=== PATIENT | male | born 1950 | race Hispanic/Latino ===

== ENCOUNTER → 2017-09-21 | Outpatient (CLI) | payer OTHER ==
[~2017-09-21] MED LIST: ALLO100T PO; ASPI-555 PO; BISA5TAB12 PO; CEFI200T PO; CLOP75TA14 PO; COLC0.6C3 PO; CYCL30DR OU; FERR240T6 PO; FISH1CAP63 PO; FOLI1TAB61 PO; INSU10VI4 SQ; LISI-613 PO; METO-409 PO; MIRA50TA PO; ROSU10TA PO; SILO8CAP PO; SODI650T PO; THIA100T75 PO
== END | disposition home or self-care (01) ==
LOC: SHCH 09:36
PROVIDERS: ATTEND Internal Medicine Cardiovascular Disease
DX: I25.10 Atherosclerotic heart disease of native coronary artery without angina pectoris (principal)
CPT/HCPCS: 93880

== ENCOUNTER 2018-05-02 12:42 | Emergency (ER) | payer OTHER ==
[~2018-05-02 12:42] MED LIST changes: +INSU100V33 SQ; -INSU10VI4 SQ; -SILO8CAP PO; +SILO8CAP2 PO
[2018-05-02 13:48] LABS: APPEARANCE,URINE Cloudy (CLEAR); BILIRUBIN,URINE Negative (NEGATIVE); COLOR,URINE Yellow (YELLOW); GLUCOSE, URINE (UA) Negative (NEGATIVE); KETONES,URINE Negative (NEGATIVE); LEUKOCYTE ESTERASE ,URINE Large (NEGATIVE); NITRATE,URINE Positive (NEGATIVE); OCCULT BLOOD,URINE Moderate (NEGATIVE); PH,URINE 5.5 (5.0-8.0); PROTEIN,URINE Trace (NEGATIVE); UROBILINOGEN,URINE 0.2 mg/dL (0.2-1.0)
[2018-05-02 13:52] LABS: AMORPHOUS SEDIMENT,UR Moderate /LPF (None Seen); BACTERIA,URINE Few /HPF (None Seen); SQUAMOUS EPITHELIAL CELL,UR Rare /HPF (0-2); WBC,URINE 26-50 /HPF (0-1)
== END 2018-05-02 14:00 | disposition home or self-care (01) ==
LOC: EDH 12:42
DX: N39.0 Urinary tract infection, site not specified (principal); R33.9 Retention of urine, unspecified; I12.9 Hypertensive chronic kidney disease with stage 1 through stage 4 chronic kidney disease, or unspecified chronic kidney disease; E11.22 Type 2 diabetes mellitus with diabetic chronic kidney disease; N18.9 Chronic kidney disease, unspecified; M19.90 Unspecified osteoarthritis, unspecified site; I25.10 Atherosclerotic heart disease of native coronary artery without angina pectoris; Z46.6 Encounter for fitting and adjustment of urinary device; Z90.49 Acquired absence of other specified parts of digestive tract; Z95.1 Presence of aortocoronary bypass graft; Z98.890 Other specified postprocedural states; Z87.891 Personal history of nicotine dependence
CPT/HCPCS: 81001; 87077; 87088; 87186

== ENCOUNTER → 2018-05-14 | Outpatient (CLI) | payer OTHER | END | disposition home or self-care (01) | LOC: SHCH 10:52 | PROVIDERS: ATTEND Internal Medicine Cardiovascular Disease | DX: R60.9 Edema, unspecified (principal) | CPT/HCPCS: 93970 ==

== ENCOUNTER → 2018-05-24 | Outpatient (CLI) | payer OTHER | END | disposition home or self-care (01) | LOC: SHCH 15:53 | PROVIDERS: ATTEND Internal Medicine Cardiovascular Disease | DX: I11.9 Hypertensive heart disease without heart failure (principal); Z95.0 Presence of cardiac pacemaker | CPT/HCPCS: 93306 ==

== ENCOUNTER → 2018-08-20 | Outpatient (CLI) | payer OTHER ==
[~2018-08-20] MED LIST changes: -ROSU10TA PO; +ROSU10TA22 PO
== END | disposition home or self-care (01) ==
LOC: SHCH 09:26
PROVIDERS: ATTEND Internal Medicine Cardiovascular Disease
DX: Z09 Encounter for follow-up examination after completed treatment for conditions other than malignant neoplasm (principal)
CPT/HCPCS: 93971

== ENCOUNTER → 2019-09-12 | Outpatient (CLI) | payer OTHER ==
[~2019-09-12] MED LIST changes: +ALBUHFA IH; +AMLO-257 PO; +APIX2.5T PO; -ASPI-555 PO; +ASPI-556 PO; +DOCU-116 PO; +FERS325 PO; +FINA5TAB41 PO; +FOLI0.8T2 PO; +FURO40TA5 PO; +GLIM1TAB18 PO; +INSU100V SQ; +KETO5DRO39 OD; +LATA2.5D2 OP; +METO25 PO; +PRED20B PO
== END | disposition home or self-care (01) ==
LOC: SHCH 12:48
PROVIDERS: ATTEND Internal Medicine Cardiovascular Disease
DX: R09.89 Other specified symptoms and signs involving the circulatory and respiratory systems (principal); R01.1 Cardiac murmur, unspecified
CPT/HCPCS: 93306; 93880

== ENCOUNTER 2019-09-13 21:20 | Emergency (ER) | payer OTHER ==
[~2019-09-13 21:20] MED LIST changes: -ALBUHFA IH; -AMLO-257 PO; -APIX2.5T PO; -DOCU-116 PO; -FERS325 PO; -FINA5TAB41 PO; -FOLI0.8T2 PO; -FURO40TA5 PO; -GLIM1TAB18 PO; -INSU100V SQ; -KETO5DRO39 OD; -LATA2.5D2 OP; -METO25 PO; -PRED20B PO
[2019-09-13 22:10] LABS: BASOPHILS % (AUTO) 0.5 % (0.0-5.0); EOSINOPHILS % (AUTO) 3.1 % (0.0-8.0); HEMATOCRIT 40.5 % (42-54); LYMPHOCYTES % (AUTO) 5.3 % (21.0-51.0); MEAN CORPUSCULAR HEMOGLOBIN 28.1 pg (27.0-33.0); MEAN CORPUSCULAR HGB CONC 31.6 g/dL (32.0-36.0); MONOCYTES % (AUTO) 5.9 % (3.0-13.0); PLATELET COUNT (AUTO) 156 K/uL (130-400); RED BLOOD CELL COUNT(AUTO) 4.55 MIL/uL (4.50-6.20); RED CELL DISTRIBUTION WIDTH 13.7 % (11.0-15.5); WHITE BLOOD COUNT (AUTO) 8.1 K/uL (4.8-10.8)
[2019-09-13 22:21] LABS: APPEARANCE,URINE Clear (CLEAR); BILIRUBIN,URINE Negative (NEGATIVE); COLOR,URINE Yellow (YELLOW); GLUCOSE, URINE (UA) Negative (NEGATIVE); KETONES,URINE Trace mg/dL (NEGATIVE); LEUKOCYTE ESTERASE ,URINE Negative (NEGATIVE); NITRATE,URINE Negative (NEGATIVE); OCCULT BLOOD,URINE Trace (NEGATIVE); PROTEIN,URINE 300 mg/dL (NEGATIVE)
[2019-09-13 22:21] LABS: CREATININE 1.4 mg/dL (0.5-1.5); POTASSIUM 4.8 mmol/L (3.5-5.1)
[2019-09-13 22:26] LABS: ALBUMIN 3.6 g/dL (3.5-5.0); BILIRUBIN,TOTAL 0.5 mg/dL (0.2-1.0); TOTAL PROTEIN, SERUM 6.7 g/dL (6.0-8.3)
[2019-09-13 22:31] LABS: BACTERIA,URINE None Seen /HPF (None Seen); RBC,URINE 0-1 /HPF (0-1); SQUAMOUS EPITHELIAL CELL,UR Rare /HPF (0-2); WBC,URINE None Seen /HPF (0-1)
[2019-09-13] MEDS ORDERED: ACETAMINOPHEN EXTRA STRENGTH 500 MG TABLET ONE (22:43)
[2019-09-13] MEDS ORDERED: MORPHINE SULFATE 4 MG/1ML SYG ONE (23:17)
[2019-09-13] MEDS ORDERED: ONDANSETRON HCL 4 MG/2 ML VIAL ONE (23:17)
[2019-09-18] MEDS ORDERED: FERS325 PO (13:50)
[2019-09-18] MEDS ORDERED: CLOP75TA14 PO (13:50)
[2019-09-18] MEDS ORDERED: GLIM1TAB18 PO (13:50)
[2019-09-18] MEDS ORDERED: SODI650T PO (13:50)
[2019-09-18] MEDS ORDERED: LATA2.5D2 OP (13:50)
[2019-09-18] MEDS ORDERED: KETO5DRO39 OD (13:50)
[2019-09-18] MEDS ORDERED: METO-409 PO (13:50)
[2019-09-18] MEDS ORDERED: AMLO-257 PO (13:50)
[2019-09-18] MEDS ORDERED: FINA5TAB41 PO (13:50)
[2019-09-18] MEDS ORDERED: FOLI0.8T2 PO (13:50)
[2019-09-18] MEDS ORDERED: ASPI-556 PO (13:50)
[2019-09-18] MEDS ORDERED: FOLI1TAB61 PO (13:50)
[2019-09-18] MEDS ORDERED: LISI-613 PO (13:50)
[2019-09-18] MEDS ORDERED: FURO40TA5 PO (13:50)
[2019-09-18] MEDS ORDERED: SILO8CAP2 PO (13:50)
[2019-09-18] MEDS ORDERED: DOCU-116 PO (13:50)
[2019-09-18] MEDS ORDERED: ROSU10TA22 PO (13:50)
[2019-10-10] MEDS ORDERED: PRED20B PO (11:04)
[2019-10-10] MEDS ORDERED: METO25 PO (11:04)
[2019-10-10] MEDS ORDERED: INSU100V SQ ×2 (11:04)
[2019-10-10] MEDS ORDERED: ALBUHFA IH (11:04)
[2019-10-10] MEDS ORDERED: APIX2.5T PO (11:04)
== END 2019-09-14 00:41 | disposition home or self-care (01) ==
LOC: EDH 21:20
DX: M54.9 Dorsalgia, unspecified (principal); E66.01 Morbid (severe) obesity due to excess calories; I12.0 Hypertensive chronic kidney disease with stage 5 chronic kidney disease or end stage renal disease; E11.22 Type 2 diabetes mellitus with diabetic chronic kidney disease; N18.6 End stage renal disease; I25.10 Atherosclerotic heart disease of native coronary artery without angina pectoris; M19.90 Unspecified osteoarthritis, unspecified site; M10.9 Gout, unspecified
CPT/HCPCS: 36415; 71045; 74176; 80053; 81001; 82550; 83605; 83880; 84484; 85025; 87040 ×2; 87077; 87088; 87186; 93005; 96374; 96375; 99284; J2270; J2405

== ENCOUNTER 2019-09-17 11:59 | Inpatient (IN) | payer OTHER ==
[~2019-09-17] VITALS: Ht 167.6 cm; Wt 152.8 kg
[2019-09-17] MEDS ORDERED: ACETAMINOPHEN EXTRA STRENGTH 500 MG TABLET ONE (12:14)
[2019-09-17] MEDS ORDERED: AZITHROMYCIN 500MG+NS 250ML 250 ML IV ONE (15:40)
[2019-09-17] MEDS ORDERED: CEFTRIAXONE SODIUM 1 GM ONE (15:40)
[2019-09-17] MEDS ORDERED: SODIUM CHLORIDE 0.9% 500 ML IV ONE (15:41)
[2019-09-17] MEDS ORDERED: ALBUTEROL INHALER 90MCG/INH IH PRN (17:15)
[2019-09-17] MEDS ORDERED: METHYLPREDNISOLONE SOD SUCC 40MG/ML 1ML ONE (19:33)
[2019-09-17] MEDS ORDERED: FAMOTIDINE/PF 20 MG/2 ML VIAL IV ONE (19:33)
[2019-09-17] MEDS ORDERED: ENOXAPARIN SODIUM 60 MG/0.6 ML SQ ONE (19:33)
[2019-09-17] MEDS: ENOXAPARIN SODIUM 40 MG/0.4 ML SYRINGE SQ SCH (20:00)
[2019-09-17] MEDS: CEFTRIAXONE SODIUM 1 GM IVP SCH (21:00)
[2019-09-17] MEDS: FUROSEMIDE 20 MG TABLET PO SCH (22:00)
[2019-09-17] MEDS: INSULIN LISPRO 100 UNIT/ML 3ML SQ SCH (22:00)
[2019-09-17 22:18] VITALS: PULSE 81; RESP 15
[2019-09-17] MEDS ORDERED: FUROSEMIDE 20 MG TABLET ONE (23:25)
[2019-09-18] VITALS (10 sets, daily range): BP systolic 136–161; BP diastolic 69–93; PULSE 80–89; RESP 18–22; TEMP 98.2–100.7
[2019-09-18] MEDS: INSULIN LISPRO 100 UNIT/ML 3ML SQ SCH ×4 (04:00→23:53)
[2019-09-18] MEDS: ENOXAPARIN SODIUM 40 MG/0.4 ML SYRINGE SQ SCH (08:29)
[2019-09-18] MEDS: FAMOTIDINE/PF 20 MG/2 ML VIAL IV SCH (08:29)
[2019-09-18] MEDS: AZITHROMYCIN 500MG+NS 250ML 250 ML IV SCH (08:30)
[2019-09-18] MEDS: FUROSEMIDE 20 MG TABLET PO SCH (10:15)
[2019-09-18] MEDS ORDERED: METHYLPREDNISOLONE SOD SUCC 40MG/ML 1ML IVP SCH (14:30)
[2019-09-18] MEDS ORDERED: REMDESIVIR (INVESTIGATIONAL) 200 MG in SODIUM CHLORIDE 0.9% 250 ML IV ONE (16:00)
[2019-09-18] MEDS: METHYLPREDNISOLONE SOD SUCC 40MG/ML 1ML IVP SCH ×2 (16:37→23:52)
[2019-09-18] MEDS: LACTATED RINGERS 1000ML 1,000 ML IV SCH (16:37)
--- NOTE | 2019-09-18 18:02 | NUR ---
Family contacted Spoke with patients family regarding giving the patient convalescent plasma for covid + treatment. Informed consent was obtained from Carla Gomes via telephone consent with 2 nurses phoebe CHE witnessed. Patient was also informed of treatment but due to a small amount of confusion most likely related to viral covid pneumonia. was called to verify if they would like to proceed with Dr. Yu recommendation to use plasma.
[2019-09-18] MEDS: ENOXAPARIN SODIUM 120 MG/0.8ML SQ SCH (19:53)
[2019-09-18] MEDS: CEFTRIAXONE SODIUM 1 GM IVP SCH (19:53)
[2019-09-19] VITALS (12 sets, daily range): BP systolic 119–160; BP diastolic 55–75; PULSE 72–89; RESP 18–24; TEMP 97.5–100.1
[2019-09-19] MEDS: INSULIN LISPRO 100 UNIT/ML 3ML SQ SCH ×6 (06:36→20:20)
[2019-09-19] MEDS: AZITHROMYCIN 500MG+NS 250ML 250 ML IV SCH (08:27)
[2019-09-19] MEDS: FAMOTIDINE/PF 20 MG/2 ML VIAL IV SCH (08:27)
[2019-09-19] MEDS: METHYLPREDNISOLONE SOD SUCC 40MG/ML 1ML IVP SCH ×3 (08:27→23:26)
[2019-09-19] MEDS: ENOXAPARIN SODIUM 120 MG/0.8ML SQ SCH ×2 (08:27→20:14)
[2019-09-19] MEDS: INSULIN GLARGINE 100 UNITS/ML 10 ML VIAL SQ SCH ×2 (10:00→20:15)
[2019-09-19] MEDS ORDERED: RENAL DOSE IV SCH (12:30)
[2019-09-19] MEDS ORDERED: VANCOMYCIN 1GM+NS 250ML 250 ML IV SCH (12:30)
[2019-09-19] MEDS ORDERED: VANCOMYCIN PROTOCOL PER PHARMACY IV PRN (12:30)
[2019-09-19] MEDS ORDERED: CEFEPIME HCL 2 GM VIAL IVP SCH (12:45)
[2019-09-19] MEDS ORDERED: COMPOUND IV REFRIGERATED 1 EACH IVSOLN MISC PRN (13:00)
[2019-09-19] MEDS: REMDESIVIR (INVESTIGATIONAL) 100 MG in SODIUM CHLORIDE 0.9% 250 ML IV SCH (15:27)
--- NOTE | 2019-09-19 16:13 | NUR ---
MD Plan Patient currently on a 1:1. Per face sheet, daughter Dali Gomes (ph: [phone]) is person to notify. Spoke to daughter Dali and patient's Elias Gomes rehabilitation teacher as well. States patient lives with Carla and daughter Dali. Denies any HH or provider services. Verified patient has a cane and 4-wheeled walker with seat. States patient has been weak and had falls prior to coming in. Concerned about patient returning home due to weakness and inability to assist at home. Daughter will be going back to work and will not be at home all day to help out. Requesting patient go to a SNF. 1st choice [facility] in [place] and 2nd choice is [facility]. Telephone consent given for MARILYN and Choice Letter for both facilities. Informed daughter of referral process. Verbalized understanding. CM to work on obtaining an order for SNF. CD Addendum: 09/19/19 at 1657 by MAEVE WYMAN CM Amended: Links added.
[2019-09-19] MEDS: LACTATED RINGERS 1000ML 1,000 ML IV SCH (19:18)
[2019-09-19] MEDS: VANCOMYCIN 750MG + NS 250 ML IV SCH (20:13)
[2019-09-19] MEDS: CEFEPIME HCL 1 GM VIAL IVP SCH (21:04)
[2019-09-20] VITALS (10 sets, daily range): BP systolic 133–164; BP diastolic 44–72; PULSE 63–85; RESP 20–24; TEMP 96.4–98.3
[2019-09-20] MEDS ORDERED: GUAIFENESIN-DM 200/20 MG 10 ML ONE (03:56)
[2019-09-20] MEDS: CEFEPIME HCL 1 GM VIAL IVP SCH ×3 (05:48→21:25)
[2019-09-20] MEDS: INSULIN LISPRO 100 UNIT/ML 3ML SQ SCH ×7 (05:50→21:00)
[2019-09-20] MEDS: INSULIN GLARGINE 100 UNITS/ML 10 ML VIAL SQ SCH ×2 (05:52→21:00)
[2019-09-20] MEDS: LACTATED RINGERS 1000ML 1,000 ML IV SCH (05:52)
--- NOTE | 2019-09-20 06:25 | NUR ---
convalescent plasma 0500: informed by esperanza daniel that convalescent plasmas was thawed and ready to be administered 0515: obtained blood transfusion consent from next of kin. Rakan CHE, second nurse witness, telephone consent 0520: informed esperanza daniel, that patient did not have an blood transfusion band on. artificial insemination technician, informed Wendi Stovall RN, that patient would need to be type and screen in order to obtain new blood transfusion band. 0620: hvac commercial salespersonDeborah, at bedside drawing type and screen. 0630: type and screen walked to lab by deborah daniel
[2019-09-20] MEDS ORDERED: SODIUM CHLORIDE 0.9% 250 ML IV ONE ×2 (06:51→21:08)
--- NOTE | 2019-09-20 07:10 | NUR ---
0700 convalescent plasma initiated at this time. vital signs take 5 minutes pre-infusion. patient with no complaints of pain at this time. 0715: bedside report given to delfin CHE at this time.
[2019-09-20] MEDS: METHYLPREDNISOLONE SOD SUCC 40MG/ML 1ML IVP SCH ×3 (08:07→21:25)
[2019-09-20] MEDS: VANCOMYCIN 750MG + NS 250 ML IV SCH ×2 (08:07→21:25)
[2019-09-20] MEDS: FAMOTIDINE/PF 20 MG/2 ML VIAL IV SCH (08:07)
[2019-09-20] MEDS: ENOXAPARIN SODIUM 120 MG/0.8ML SQ SCH ×2 (08:08→21:25)
[2019-09-20] MEDS ORDERED: POLYETHYLENE GLYCOL 3350 17 GM POWD.PACK PO PRN (14:45)
[2019-09-20] MEDS ORDERED: SODIUM POLYSTYRENE SULFONATE 15 GM/60 ML ML PO ONE (16:00)
[2019-09-20] MEDS: REMDESIVIR (INVESTIGATIONAL) 100 MG in SODIUM CHLORIDE 0.9% 250 ML IV SCH (18:57)
[2019-09-20] MEDS: SENNOSIDES 8.6 MG TABLET PO SCH (21:25)
[2019-09-21] VITALS (11 sets, daily range): BP systolic 136–165; BP diastolic 57–78; PULSE 68–91; RESP 20–24; TEMP 97.4–98.6
[2019-09-21] MEDS: CEFEPIME HCL 1 GM VIAL IVP SCH ×3 (05:30→21:04)
[2019-09-21] MEDS: INSULIN GLARGINE 100 UNITS/ML 10 ML VIAL SQ SCH ×2 (06:25→20:50)
[2019-09-21] MEDS: INSULIN LISPRO 100 UNIT/ML 3ML SQ SCH ×7 (06:26→20:48)
[2019-09-21] MEDS: METHYLPREDNISOLONE SOD SUCC 40MG/ML 1ML IVP SCH ×2 (09:38→15:07)
[2019-09-21] MEDS: FAMOTIDINE 20MG TAB 20 MG TAB PO SCH (09:38)
[2019-09-21] MEDS: DOCUSATE SODIUM 100 MG CAP PO SCH (09:38)
[2019-09-21] MEDS: ENOXAPARIN SODIUM 120 MG/0.8ML SQ SCH ×2 (09:39→20:41)
[2019-09-21] MEDS: VANCOMYCIN 750MG + NS 250 ML IV SCH (13:06)
[2019-09-21] MEDS ORDERED: INSULIN GLARGINE 100 UNITS/ML 10 ML VIAL SQ SCH (13:30)
[2019-09-21] MEDS ORDERED: VANCOMYCIN 500MG+NS 100ML 100 ML IV SCH (14:00)
[2019-09-21] MEDS: AMLODIPINE BESYLATE 5 MG TAB PO SCH (15:06)
[2019-09-21] MEDS: FERROUS SULFATE 325 MG TABLET.DR PO SCH ×2 (15:06→16:38)
[2019-09-21] MEDS: ASPIRIN 81 MG EC TAB PO SCH (15:06)
[2019-09-21] MEDS: SODIUM BICARBONATE 650 MG TAB PO SCH ×2 (15:06→16:38)
[2019-09-21] MEDS: LISINOPRIL 20 MG TABLET PO SCH (15:07)
[2019-09-21] MEDS: ACETAMINOPHEN-CODEINE 300/30MG TAB PO PRN (15:07)
[2019-09-21] MEDS: CLOPIDOGREL BISULFATE 75 MG TAB PO SCH (15:08)
[2019-09-21] MEDS: FOLIC ACID/VITAMIN B COMP W-C 1 CAP TAB PO SCH (15:09)
[2019-09-21] MEDS: REMDESIVIR (INVESTIGATIONAL) 100 MG in SODIUM CHLORIDE 0.9% 250 ML IV SCH (16:36)
[2019-09-21] MEDS: GLIMEPIRIDE 2 MG TABLET PO SCH (16:38)
[2019-09-21] MEDS: ATORVASTATIN CALCIUM 20 MG TABLET PO SCH (16:39)
[2019-09-21] MEDS: METOPROLOL SUCCINATE 50 MG TAB.SR.24H PO SCH (20:41)
[2019-09-21] MEDS: FUROSEMIDE 40 MG TABLET PO SCH (20:42)
[2019-09-21] MEDS: VANCOMYCIN 1GM+NS 250ML 250 ML IV SCH (20:43)
[2019-09-21] MEDS: SENNOSIDES 8.6 MG TABLET PO SCH (20:43)
[2019-09-21] MEDS: LATANOPROST 2.5 ML DROPS OP SCH (20:43)
[2019-09-22] VITALS (8 sets, daily range): BP systolic 145–172; BP diastolic 56–72; PULSE 60–72; RESP 20–24; TEMP 97.4–98.7
[2019-09-22] MEDS: METHYLPREDNISOLONE SOD SUCC 40MG/ML 1ML IVP SCH ×3 (00:15→17:58)
[2019-09-22] MEDS ORDERED: HYDRALAZINE HCL 20 MG/ML VIAL ONE (03:42)
[2019-09-22] MEDS ORDERED: HYDRALAZINE HCL 20 MG/ML VIAL IV PRN (04:00)
--- NOTE | 2019-09-22 05:32 | NUR ---
Oxygenation updates Patient oxygen saturations improved and maintained greater than 90% O2 when in prone position. However, patient does not tolerate prone position very long and can only last approximately 30min to 1hr in prone position. Oxygen settings are as follow: high flow at 40 Liters NC at 100%. When patient in supine or in sitting positions oxygen sats fluctuate from 84%-90%. Nurse explain the importance of prone position and patient verbalizes understanding. Call light within reach and sitter at bedside.
[2019-09-22] MEDS: CEFEPIME HCL 1 GM VIAL IVP SCH ×3 (06:12→22:07)
[2019-09-22] MEDS: INSULIN GLARGINE 100 UNITS/ML 10 ML VIAL SQ SCH ×2 (06:13→21:14)
[2019-09-22] MEDS: INSULIN LISPRO 100 UNIT/ML 3ML SQ SCH ×6 (06:17→21:13)
--- NOTE | 2019-09-22 08:04 | NUR ---
SPOKE WITH PATIENTS USMAN ANGELES, UPDATED HER ON PATIENTS STATUS AND OBTAINED OVER THE PHONE CONSENT FOR PICC LINE, WITNESSED BY NURSE HARDY BERRY RN
[2019-09-22] MEDS: SILODOSIN 8 MG PO SCH (09:00)
[2019-09-22] MEDS: DOCUSATE SODIUM 100 MG CAP PO SCH (10:41)
[2019-09-22] MEDS: METOPROLOL SUCCINATE 50 MG TAB.SR.24H PO SCH ×2 (10:41→20:40)
[2019-09-22] MEDS: AMLODIPINE BESYLATE 5 MG TAB PO SCH (10:41)
[2019-09-22] MEDS: SODIUM BICARBONATE 650 MG TAB PO SCH ×2 (10:41→17:58)
[2019-09-22] MEDS: FOLIC ACID/VITAMIN B COMP W-C 1 CAP TAB PO SCH (10:41)
[2019-09-22] MEDS: FERROUS SULFATE 325 MG TABLET.DR PO SCH ×2 (10:41→17:57)
[2019-09-22] MEDS: FAMOTIDINE 20MG TAB 20 MG TAB PO SCH ×2 (10:41→20:40)
[2019-09-22] MEDS: ASPIRIN 81 MG EC TAB PO SCH (10:42)
[2019-09-22] MEDS: LISINOPRIL 20 MG TABLET PO SCH (10:42)
[2019-09-22] MEDS: FUROSEMIDE 40 MG TABLET PO SCH (10:43)
[2019-09-22] MEDS: GLIMEPIRIDE 2 MG TABLET PO SCH ×2 (10:43→17:00)
[2019-09-22] MEDS: CLOPIDOGREL BISULFATE 75 MG TAB PO SCH (10:43)
[2019-09-22] MEDS: GUAIFENESIN-DM 200/20 MG 10 ML PO PRN (10:43)
[2019-09-22] MEDS: ENOXAPARIN SODIUM 120 MG/0.8ML SQ SCH ×2 (10:45→21:10)
--- NOTE | 2019-09-22 13:00 | NUR ---
SPOKE WITH DAUGHTER DYANA AND USMAN ABOUT PATIENTS DETERIORATING HEALTH. EXPLAINED TO THEM THE POSSIBILITY OF NEEDING TO INTUBATE PATIENT. RISKS VS BENEFITS EXPLAINED. BOTH AGREE ON INTUBATION IF NEEDED
[2019-09-22] MEDS: ACETAMINOPHEN-CODEINE 300/30MG TAB PO PRN (14:23)
--- NOTE | 2019-09-22 17:00 | NUR ---
LEFT CEPHALIC VEIN SUCCESSFULLY ACCESSED ON SECOND ATTEMPT. 5 FR 2 LUMEN PICC INSERTED, USING ASEPTIC TECHNIQUE. UNABLE TO OBTAIN VPS BULLSEYE AFTER CATHETER INSERTED TO FULL 50CM UNCUT LENGTH, MOST LIKELY DUE TO PT MORBID OBESITY. CHEST XRAY ORDERED PENDING RADIOLOGY CONFIRMATION OF TIP PLACEMENT IN SVC FOR OK TO USE. RUBIA BASHIR, CHINEDU AWARE. BOTH PORTS FLUSHED AND CLAMPED ASEPTICALLY. RN ALSO MADE AWARE OF RIGHT UPPER ARM SWELLING, HARD AND PAINFUL. PT REPORTS PAIN FOR 1-2 DAYS. RN WILL RELAY THIS TO ATTENDING MD AND AWAIT FURTHER ORDERS.
[2019-09-22] MEDS: REMDESIVIR (INVESTIGATIONAL) 100 MG in SODIUM CHLORIDE 0.9% 250 ML IV SCH (17:56)
[2019-09-22] MEDS: VANCOMYCIN 1GM+NS 250ML 250 ML IV SCH ×2 (17:56→23:55)
[2019-09-22] MEDS: FUROSEMIDE 10 MG/ML 4ML VIAL IV SCH (17:57)
[2019-09-22] MEDS: ATORVASTATIN CALCIUM 20 MG TABLET PO SCH (17:58)
[2019-09-22] MEDS: SENNOSIDES 8.6 MG TABLET PO SCH (20:40)
[2019-09-22] MEDS: METHYLPREDNISOLONE SOD SUCC 125MG/2ML VIAL IVP SCH (20:40)
[2019-09-22] MEDS: LATANOPROST 2.5 ML DROPS OP SCH (20:41)
--- NOTE | 2019-09-22 22:10 | NUR ---
CALLED BACK TO ASSESS PICC LINE REPORTED NOT FUNCTIONING. NOTED PICC WAS POSITIONAL AND KINKING ALONG A CREASE IN PTS ARM FOLDS FROM OBESITY. PICC DRESSING AND STAT LOCK REMOVED AND SITE CLEANED ASEPTICALLY. PICC LINE PULLED OUT 2CM AND ANGLED LATERALLY UNTIL GOOD BLOOD RETURN ACHIEVED AND FLUSHED EASILY AND CLAMPED. NEW STAT LOCK AND DRESSING APPLIED USING ASEPTIC TECHNIQUE. BOTH LUMENS OF PICC LINE FLUSHED A SECOND TIME AFTER DRESSING APPLIED TO DOUBLE CHECK FUNCTION. BOTH LUMENS HAD GOOD BLOOD RETURN AND FLUSHED EASILY AND CLAMPED.
[2019-09-22] MEDS ORDERED: LORAZEPAM 2 MG/ML 1 ML VIAL ONE (23:20)
[2019-09-22] MEDS ORDERED: LORAZEPAM 2 MG/ML 1 ML VIAL IVP ONE (23:30)
[2019-09-23] VITALS (11 sets, daily range): BP systolic 119–156; BP diastolic 45–69; PULSE 63–93; RESP 20–24; TEMP 96.8–99
[2019-09-23] MEDS: METHYLPREDNISOLONE SOD SUCC 125MG/2ML VIAL IVP SCH ×4 (01:04→18:45)
[2019-09-23] MEDS: FUROSEMIDE 10 MG/ML 4ML VIAL IV SCH (02:04)
[2019-09-23] MEDS: CEFEPIME HCL 1 GM VIAL IVP SCH ×3 (05:22→22:36)
[2019-09-23] MEDS: INSULIN LISPRO 100 UNIT/ML 3ML SQ SCH ×7 (05:34→21:00)
[2019-09-23] MEDS: INSULIN GLARGINE 100 UNITS/ML 10 ML VIAL SQ SCH ×2 (06:02→21:00)
[2019-09-23] MEDS: SILODOSIN 8 MG PO SCH (09:00)
[2019-09-23] MEDS: SODIUM BICARBONATE 650 MG TAB PO SCH ×2 (09:19→17:00)
[2019-09-23] MEDS: VANCOMYCIN 1GM+NS 250ML 250 ML IV SCH ×2 (09:19→22:37)
[2019-09-23] MEDS: DOCUSATE SODIUM 100 MG CAP PO SCH (09:19)
[2019-09-23] MEDS: LISINOPRIL 20 MG TABLET PO SCH (09:19)
[2019-09-23] MEDS: ASPIRIN 81 MG EC TAB PO SCH (09:19)
[2019-09-23] MEDS: METOPROLOL SUCCINATE 50 MG TAB.SR.24H PO SCH (09:19)
[2019-09-23] MEDS: FOLIC ACID/VITAMIN B COMP W-C 1 CAP TAB PO SCH (09:20)
[2019-09-23] MEDS: AMLODIPINE BESYLATE 5 MG TAB PO SCH (09:20)
[2019-09-23] MEDS: GLIMEPIRIDE 2 MG TABLET PO SCH ×2 (09:20→17:00)
[2019-09-23] MEDS: FERROUS SULFATE 325 MG TABLET.DR PO SCH ×2 (09:20→17:00)
[2019-09-23] MEDS: FAMOTIDINE 20MG TAB 20 MG TAB PO SCH (09:20)
[2019-09-23] MEDS: CLOPIDOGREL BISULFATE 75 MG TAB PO SCH (09:21)
[2019-09-23] MEDS ORDERED: LIDOCAINE HCL-MPF 1% 2ML VIAL IV PRN (11:45)
[2019-09-23] MEDS ORDERED: MAGNESIUM 2GM PREMIX 50ML 50 ML IV PRN (11:45)
[2019-09-23] MEDS ORDERED: POTASSIUM CHLORIDE 10% ELIXIR 20 MEQ/15 ML UDCUP PO PRN (11:45)
[2019-09-23] MEDS ORDERED: POTASSIUM CHLORIDE 20MEQ/100ML 100 ML IV PRN (11:45)
[2019-09-23] MEDS: ATORVASTATIN CALCIUM 20 MG TABLET PO SCH (17:00)
[2019-09-23] MEDS: SENNOSIDES 8.6 MG TABLET PO SCH (21:00)
[2019-09-23] MEDS: FAMOTIDINE/PF 20 MG/2 ML VIAL IV SCH (22:36)
[2019-09-23] MEDS: METOPROLOL TARTRATE 1 MG/ML 5ML VIAL IV SCH (22:43)
[2019-09-23] MEDS: LATANOPROST 2.5 ML DROPS OP SCH (22:58)
[2019-09-24] VITALS (9 sets, daily range): BP systolic 122–175; BP diastolic 60–71; PULSE 67–96; RESP 18–32; TEMP 97.1–98.5
[2019-09-24] MEDS: METHYLPREDNISOLONE SOD SUCC 125MG/2ML VIAL IVP SCH ×3 (02:27→12:47)
[2019-09-24] MEDS: METOPROLOL TARTRATE 1 MG/ML 5ML VIAL IV SCH ×3 (02:28→17:54)
[2019-09-24] MEDS: INSULIN LISPRO 100 UNIT/ML 3ML SQ SCH ×7 (05:42→22:32)
[2019-09-24] MEDS: CEFEPIME HCL 1 GM VIAL IVP SCH ×3 (06:21→20:06)
[2019-09-24] MEDS: INSULIN GLARGINE 100 UNITS/ML 10 ML VIAL SQ SCH ×2 (06:25→22:31)
[2019-09-24] MEDS: SODIUM BICARBONATE 650 MG TAB PO SCH ×2 (08:00→17:00)
[2019-09-24] MEDS: FERROUS SULFATE 325 MG TABLET.DR PO SCH ×2 (08:00→17:00)
[2019-09-24] MEDS: GLIMEPIRIDE 2 MG TABLET PO SCH ×2 (08:00→17:00)
[2019-09-24] MEDS: CLOPIDOGREL BISULFATE 75 MG TAB PO SCH (09:00)
[2019-09-24] MEDS ORDERED: FUROSEMIDE 10 MG/ML 4ML VIAL IV SCH (09:00)
[2019-09-24] MEDS: LISINOPRIL 20 MG TABLET PO SCH (09:00)
[2019-09-24] MEDS: ASPIRIN 81 MG EC TAB PO SCH (09:00)
[2019-09-24] MEDS: SILODOSIN 8 MG PO SCH (09:00)
[2019-09-24] MEDS: FOLIC ACID/VITAMIN B COMP W-C 1 CAP TAB PO SCH (09:00)
[2019-09-24] MEDS: DOCUSATE SODIUM 100 MG CAP PO SCH (09:00)
[2019-09-24] MEDS: AMLODIPINE BESYLATE 5 MG TAB PO SCH (09:00)
[2019-09-24] MEDS: VANCOMYCIN 1GM+NS 250ML 250 ML IV SCH ×2 (10:32→20:06)
[2019-09-24] MEDS: FAMOTIDINE/PF 20 MG/2 ML VIAL IV SCH ×2 (10:32→20:06)
[2019-09-24] MEDS: ATORVASTATIN CALCIUM 20 MG TABLET PO SCH (17:00)
[2019-09-24] MEDS ORDERED: METHYLPREDNISOLONE SOD SUCC 125MG/2ML VIAL IVP SCH (18:00)
--- NOTE | 2019-09-24 18:45 | NUR ---
NOTE SPOKE TO DR VAZQUEZ AND INFORMED HIM THAT PATIENT IS BECOMING INCREASINGLY RESTLESS. HE HAD BEEN ON AND OFF WITH PERIODS OF CONFUSION TRYING TO TAKE OFF MASK AND SINGING LEGS OFF RAILS MOVING IN BED BUT NOW HE IS SCREAMING THAT HE IS THRISTY WANTS WATER, WE GIVE HIM WATER AND HE SPITS IT OUT. HE WANTS MITTENS OFF. ORDERS RECEIVED.
[2019-09-24] MEDS: HALOPERIDOL LACTATE 5 MG/ML VIAL IV SCH (20:00)
--- NOTE | 2019-09-24 20:00 | NUR ---
PT GIVEN HALDOL X1 DOSE ORDERED BY DAY NURSE. O2 LEVEL AT 96. RESTLESS. CONFUSED PHRASES. BRUISING NOTED TO UPPER BODY IN MOSTLY UPPER ARMS AREA.. 1:1 SITTER. PICC LINE PATENT.
[2019-09-24] MEDS: SENNOSIDES 8.6 MG TABLET PO SCH ×2 (20:06→21:00)
[2019-09-24] MEDS: LATANOPROST 2.5 ML DROPS OP SCH (22:29)
[2019-09-25] VITALS (9 sets, daily range): BP systolic 128–188; BP diastolic 57–88; PULSE 56–97; RESP 18–32; TEMP 97–99.1
[2019-09-25] MEDS: METOPROLOL TARTRATE 1 MG/ML 5ML VIAL IV SCH ×4 (00:09→17:08)
[2019-09-25] MEDS: METHYLPREDNISOLONE SOD SUCC 125MG/2ML VIAL IVP SCH ×3 (00:13→17:03)
--- NOTE | 2019-09-25 03:30 | NUR ---
PT BP 188 SYSTOLIC. HYDRALAZINE GIVEN PRN. VERIFIED ON BOTH ARMS. ELEVATED. WILL RECHECK IN 30 MINS.
[2019-09-25] MEDS: CEFEPIME HCL 1 GM VIAL IVP SCH ×3 (05:07→21:50)
[2019-09-25] MEDS: INSULIN LISPRO 100 UNIT/ML 3ML SQ SCH ×7 (05:10→21:52)
--- NOTE | 2019-09-25 06:17 | NUR ---
PT IS NOW AWAKE AND RESTLESS, ATTEMPTS TO GET OUT OF BED. 1:1 SITTER
[2019-09-25] MEDS: INSULIN GLARGINE 100 UNITS/ML 10 ML VIAL SQ SCH ×2 (06:43→20:29)
--- NOTE | 2019-09-25 08:10 | NUR ---
In bed, AAOX1, to person only, remains confused, 1:1 sitter at bedside to pre vent patient from pulling on lines and removing prescribed oxygen. O2 at 60 liters high flow with 100 % NRM in place, O2 sat noted at 99%.
[2019-09-25] MEDS: FERROUS SULFATE 325 MG TABLET.DR PO SCH ×2 (08:30→17:01)
[2019-09-25] MEDS: GLIMEPIRIDE 2 MG TABLET PO SCH ×2 (08:31→17:01)
[2019-09-25] MEDS: FAMOTIDINE/PF 20 MG/2 ML VIAL IV SCH ×2 (08:32→20:24)
[2019-09-25] MEDS: SODIUM BICARBONATE 650 MG TAB PO SCH ×2 (08:32→17:01)
[2019-09-25] MEDS: ASPIRIN 81 MG EC TAB PO SCH (08:32)
[2019-09-25] MEDS: DOCUSATE SODIUM 100 MG CAP PO SCH (08:33)
[2019-09-25] MEDS: FOLIC ACID/VITAMIN B COMP W-C 1 CAP TAB PO SCH (08:33)
[2019-09-25] MEDS: AMLODIPINE BESYLATE 5 MG TAB PO SCH (08:34)
[2019-09-25] MEDS: CLOPIDOGREL BISULFATE 75 MG TAB PO SCH (08:34)
[2019-09-25] MEDS: SILODOSIN 8 MG PO SCH (08:36)
[2019-09-25] MEDS: LISINOPRIL 20 MG TABLET PO SCH (08:36)
[2019-09-25] MEDS: VANCOMYCIN 1GM+NS 250ML 250 ML IV SCH ×3 (08:40→20:24)
[2019-09-25] MEDS ORDERED: DEXTROSE 5%-WATER 1,000 ML IV SCH (09:30)
[2019-09-25] MEDS: HALOPERIDOL LACTATE 5 MG/ML VIAL IV SCH (10:10)
[2019-09-25] MEDS: ENOXAPARIN SODIUM 60 MG/0.6 ML SQ SCH (12:40)
--- NOTE | 2019-09-25 12:53 | NUR ---
Current glucose level 210, covered per Humalog Sliding scale, administered 8 units. Held scheduled 15 units [facility], paged Dr Cohen notify about two orders
--- NOTE | 2019-09-25 14:52 | NUR ---
RDSCREEN-LOS X 8 Pt admitted with Respiratory Failure, PNA, Positive for COVID-19. Pt with 30gm CC diet order in place. No report of GI distress. Noted 3+ Generalized pitting edema. Obesity Class III (BMI 48.5). Elevated LDH (904). Recommend 500mg Vitamin C (BID) Recommend 60mL ProMod (QD) RD to continue to monitor. Please notify as additional nutrition concerns arise. Thank you. Addendum: 09/25/19 at [address] Amended: Links added.
[2019-09-25] MEDS: ATORVASTATIN CALCIUM 20 MG TABLET PO SCH (17:01)
--- NOTE | 2019-09-25 20:00 | NUR ---
PT CONTINUES WITH 1:1 SITTER. HAS DECREASED IN AGITATION LEVELS. DOES MOVE AROUND IN BED BUT DOES NOT ATTEMPT TO GET OUT OF BED. CURRENTLY EYES CLOSED. YELLS OUT RANDOM NAMES, IS ABLE TO RESPOND TO HIS NAME, NOT ABLE TO STATE LOCATION OR TIME. CONTINUES WITH INCREASED BRUISING TO UPPER ARMS. PICC LINE PATENT. VANCO RUNNING AT THIS TIME. PT ON HIGH FLOW WITH NRN NOW AT 90%. ORDER TO WEAN OFF WHEN POSSIBLE
[2019-09-25] MEDS: SENNOSIDES 8.6 MG TABLET PO SCH (20:24)
[2019-09-25] MEDS: LATANOPROST 2.5 ML DROPS OP SCH (20:25)
--- NOTE | 2019-09-25 20:55 | NUR ---
CARE TRANSFERRED TO L[facility]
[2019-09-26] VITALS (11 sets, daily range): BP systolic 137–199; BP diastolic 56–79; PULSE 66–97; RESP 20–34; TEMP 96.9–99.1
[2019-09-26] MEDS: CEFEPIME HCL 1 GM VIAL IVP SCH ×3 (06:39→22:50)
[2019-09-26] MEDS: INSULIN LISPRO 100 UNIT/ML 3ML SQ SCH ×7 (06:40→20:18)
[2019-09-26] MEDS: INSULIN GLARGINE 100 UNITS/ML 10 ML VIAL SQ SCH ×2 (06:40→20:18)
[2019-09-26] MEDS: METOPROLOL TARTRATE 1 MG/ML 5ML VIAL IV SCH ×4 (06:41→18:15)
[2019-09-26] MEDS: GLIMEPIRIDE 2 MG TABLET PO SCH ×2 (08:00→16:15)
[2019-09-26] MEDS: SODIUM BICARBONATE 650 MG TAB PO SCH ×2 (08:00→16:15)
[2019-09-26] MEDS: FERROUS SULFATE 325 MG TABLET.DR PO SCH ×2 (08:00→16:15)
[2019-09-26] MEDS: ASPIRIN 81 MG EC TAB PO SCH (08:53)
[2019-09-26] MEDS: AMLODIPINE BESYLATE 5 MG TAB PO SCH (08:53)
[2019-09-26] MEDS: DOCUSATE SODIUM 100 MG CAP PO SCH (08:53)
[2019-09-26] MEDS: FOLIC ACID/VITAMIN B COMP W-C 1 CAP TAB PO SCH (08:53)
[2019-09-26] MEDS: SILODOSIN 8 MG PO SCH (08:53)
[2019-09-26] MEDS: ENOXAPARIN SODIUM 60 MG/0.6 ML SQ SCH (08:54)
[2019-09-26] MEDS: CLOPIDOGREL BISULFATE 75 MG TAB PO SCH (08:54)
[2019-09-26] MEDS: LISINOPRIL 20 MG TABLET PO SCH (08:54)
[2019-09-26] MEDS: VANCOMYCIN 1GM+NS 250ML 250 ML IV SCH ×2 (08:55→20:19)
[2019-09-26] MEDS: DEXTROSE 5%-WATER 1,000 ML IV SCH (08:55)
[2019-09-26] MEDS: FAMOTIDINE/PF 20 MG/2 ML VIAL IV SCH ×2 (08:55→20:15)
[2019-09-26] MEDS: METHYLPREDNISOLONE SOD SUCC 125MG/2ML VIAL IVP SCH ×3 (08:55→16:15)
--- NOTE | 2019-09-26 14:30 | NUR ---
DYSPHAGIA EVAL COMPLETED. RECOMMEND PLEASURE FEEDS OF REGULAR TEXTURE, THIN LIQUIDS; PILLS CRUSHED. P.O. INTAKE IS NOT RECOMMENDED ON HIGH FLOW O2. Pt IS RECOMMENDED TO EAT IF TOLERATING NON-REBREATHER OR BETTER. FIRE SUPPORT MAN DISCUSSED RECOMMENDATIONS WITH JENI STEVENSON AND NURSE BETY. ALL QUESTIONS ANSWERED AT THIS TIME. Addendum: 09/26/19 at 1436 by BUZZ MAGAÑA, [facility] Amended: Links added.
[2019-09-26] MEDS: ATORVASTATIN CALCIUM 20 MG TABLET PO SCH (16:15)
[2019-09-26] MEDS: HALOPERIDOL LACTATE 5 MG/ML VIAL IV SCH (16:16)
[2019-09-26] MEDS: SENNOSIDES 8.6 MG TABLET PO SCH (20:15)
[2019-09-26] MEDS: LATANOPROST 2.5 ML DROPS OP SCH (20:24)
[2019-09-27] VITALS (9 sets, daily range): BP systolic 101–158; BP diastolic 50–72; PULSE 66–78; RESP 18–25; TEMP 96.3–98.3
[2019-09-27] MEDS: METHYLPREDNISOLONE SOD SUCC 125MG/2ML VIAL IVP SCH ×4 (00:51→23:25)
[2019-09-27] MEDS: DEXTROSE 5%-WATER 1,000 ML IV SCH ×2 (05:59→09:43)
[2019-09-27] MEDS: METOPROLOL TARTRATE 1 MG/ML 5ML VIAL IV SCH ×5 (06:01→23:26)
[2019-09-27] MEDS: CEFEPIME HCL 1 GM VIAL IVP SCH ×3 (06:01→21:01)
[2019-09-27] MEDS: INSULIN GLARGINE 100 UNITS/ML 10 ML VIAL SQ SCH ×2 (06:49→21:05)
[2019-09-27] MEDS: INSULIN LISPRO 100 UNIT/ML 3ML SQ SCH ×7 (07:55→21:05)
[2019-09-27] MEDS: FERROUS SULFATE 325 MG TABLET.DR PO SCH ×2 (07:56→16:40)
[2019-09-27] MEDS: FOLIC ACID/VITAMIN B COMP W-C 1 CAP TAB PO SCH (07:56)
[2019-09-27] MEDS: GLIMEPIRIDE 2 MG TABLET PO SCH ×2 (07:56→16:40)
[2019-09-27] MEDS: FAMOTIDINE/PF 20 MG/2 ML VIAL IV SCH ×2 (07:56→21:00)
[2019-09-27] MEDS: DOCUSATE SODIUM 100 MG CAP PO SCH (07:56)
[2019-09-27] MEDS: ASPIRIN 81 MG EC TAB PO SCH (07:56)
[2019-09-27] MEDS: SODIUM BICARBONATE 650 MG TAB PO SCH ×2 (07:56→16:40)
[2019-09-27] MEDS: ENOXAPARIN SODIUM 60 MG/0.6 ML SQ SCH (07:57)
[2019-09-27] MEDS: AMLODIPINE BESYLATE 5 MG TAB PO SCH (07:57)
[2019-09-27] MEDS: LISINOPRIL 20 MG TABLET PO SCH (07:57)
[2019-09-27] MEDS: CLOPIDOGREL BISULFATE 75 MG TAB PO SCH (07:57)
[2019-09-27] MEDS: SILODOSIN 8 MG PO SCH (07:59)
--- NOTE | 2019-09-27 09:00 | NUR ---
FOLLOW UP COMPLETED. Pt TOLERATING P.O. WHEN TRANSITIONED TO NON-REBREATHER FROM HIGH FLOW NASAL CANNULA. NURSE ALBERT AND JENI STEVENSON REPORT Pt DESATURATED TO 80s AND ABLE TO RECOVER QUICKLY WHEN PLACED BACK ON HIGH-FLOW NASAL CANNULA. NO OVERT S/S OF ASPIRATION REPORTED. LIQUOR BLENDER COORDINATED CARE WITH NURSE BETY. PLEASE NOTE: IF CURRENT RESPIRATORY STATUS DECLINES ALTERNATE MEANS OF NUTRITION/HYDRATION IS RECOMMENDED. Addendum: 09/27/19 at 1248 by BUZZ MAGAÑA, [facility] Amended: Links added.
--- NOTE | 2019-09-27 09:00 | NUR ---
DIET PATIENT TOLERATED BREAKFAST. HE REMAINS ON CONSISTENT CARB SOFT DIET. JENI STEVENSON CAREFULLY FEEDS PATIENT OFF OXYGEN AND HE WOULD TOLERATE. O2 SAT WOULD BRIEFLY DECREASE TO 80'S BUT RECOVERS QUICKLY ONCE PATIENT IS INSTRUCTED TO DEEP BREATHE AND NON-REBREATHER PLACED BACK ON. NO COUGHING, NO CHOKING OCCURRED.
[2019-09-27] MEDS: VANCOMYCIN 1GM+NS 250ML 250 ML IV SCH ×2 (09:47→20:59)
--- NOTE | 2019-09-27 12:01 | NUR ---
TRANSFERRED PATIENT TO A [facility] BED. FREQUENT TURNING ACTIVATED.
[2019-09-27] MEDS: ATORVASTATIN CALCIUM 20 MG TABLET PO SCH (16:40)
[2019-09-27] MEDS: HALOPERIDOL LACTATE 5 MG/ML VIAL IV SCH (16:41)
--- NOTE | 2019-09-27 18:43 | NUR ---
PATIENT WAS MORE AWAKE AND CONVERSANT TODAY. HE WAS ABLE TO TOLERATE HIS MEALS WITH MINIMAL SOB. PATIENT'S HIGH FLOW O2 HAS BEEN WEANED TO 50%, 40L ALONG WITH NON-REBREATHER AT 100%. O2 SAT RUNS 94-96%.
[2019-09-27] MEDS: SENNOSIDES 8.6 MG TABLET PO SCH (21:00)
[2019-09-27] MEDS: LATANOPROST 2.5 ML DROPS OP SCH (21:02)
[2019-09-28] VITALS (8 sets, daily range): BP systolic 133–149; BP diastolic 47–64; PULSE 65–88; RESP 18–23; TEMP 96.8–98.8
[2019-09-28] MEDS: CEFEPIME HCL 1 GM VIAL IVP SCH ×3 (04:50→20:52)
[2019-09-28] MEDS: METOPROLOL TARTRATE 1 MG/ML 5ML VIAL IV SCH ×2 (04:58→11:34)
[2019-09-28] MEDS: DEXTROSE 5%-WATER 1,000 ML IV SCH (05:00)
[2019-09-28] MEDS: INSULIN GLARGINE 100 UNITS/ML 10 ML VIAL SQ SCH ×2 (06:11→20:50)
[2019-09-28] MEDS: INSULIN LISPRO 100 UNIT/ML 3ML SQ SCH ×7 (06:12→21:00)
[2019-09-28] MEDS: LISINOPRIL 20 MG TABLET PO SCH (08:37)
[2019-09-28] MEDS: FOLIC ACID/VITAMIN B COMP W-C 1 CAP TAB PO SCH (08:37)
[2019-09-28] MEDS: ASPIRIN 81 MG EC TAB PO SCH (08:38)
[2019-09-28] MEDS: FERROUS SULFATE 325 MG TABLET.DR PO SCH ×2 (08:38→16:38)
[2019-09-28] MEDS: DOCUSATE SODIUM 100 MG CAP PO SCH (08:38)
[2019-09-28] MEDS: AMLODIPINE BESYLATE 5 MG TAB PO SCH (08:38)
[2019-09-28] MEDS: SODIUM BICARBONATE 650 MG TAB PO SCH ×2 (08:38→16:38)
[2019-09-28] MEDS: CLOPIDOGREL BISULFATE 75 MG TAB PO SCH (08:38)
[2019-09-28] MEDS: FAMOTIDINE/PF 20 MG/2 ML VIAL IV SCH ×2 (08:38→20:49)
[2019-09-28] MEDS: GLIMEPIRIDE 2 MG TABLET PO SCH ×2 (08:38→16:38)
[2019-09-28] MEDS: ENOXAPARIN SODIUM 60 MG/0.6 ML SQ SCH (08:39)
[2019-09-28] MEDS: SILODOSIN 8 MG PO SCH (08:40)
[2019-09-28] MEDS: METHYLPREDNISOLONE SOD SUCC 125MG/2ML VIAL IVP SCH (08:42)
[2019-09-28] MEDS: VANCOMYCIN 1GM+NS 250ML 250 ML IV SCH (08:47)
[2019-09-28] MEDS: METHYLPREDNISOLONE SOD SUCC 40MG/ML 1ML IVP SCH ×2 (09:15→16:43)
[2019-09-28] MEDS: HALOPERIDOL LACTATE 5 MG/ML VIAL IV SCH (16:00)
[2019-09-28] MEDS: ATORVASTATIN CALCIUM 20 MG TABLET PO SCH (16:38)
[2019-09-28] MEDS: SENNOSIDES 8.6 MG TABLET PO SCH (20:49)
[2019-09-28] MEDS: METOPROLOL TARTRATE 25 MG TAB PO SCH (20:52)
[2019-09-28] MEDS: LATANOPROST 2.5 ML DROPS OP SCH (20:52)
[2019-09-29] VITALS (9 sets, daily range): BP systolic 135–168; BP diastolic 56–73; PULSE 63–82; RESP 18–22; TEMP 97.5–98.5
[2019-09-29] MEDS: METHYLPREDNISOLONE SOD SUCC 40MG/ML 1ML IVP SCH ×3 (00:18→17:10)
[2019-09-29] MEDS: VANCOMYCIN 1GM+NS 250ML 250 ML IV SCH ×3 (00:20→20:55)
[2019-09-29] MEDS: CEFEPIME HCL 1 GM VIAL IVP SCH ×2 (05:00→13:42)
[2019-09-29] MEDS: INSULIN GLARGINE 100 UNITS/ML 10 ML VIAL SQ SCH ×2 (06:32→21:00)
[2019-09-29] MEDS: INSULIN LISPRO 100 UNIT/ML 3ML SQ SCH ×7 (06:33→20:57)
[2019-09-29] MEDS: ASPIRIN 81 MG EC TAB PO SCH (07:59)
[2019-09-29] MEDS: METOPROLOL TARTRATE 25 MG TAB PO SCH ×2 (07:59→20:53)
[2019-09-29] MEDS: FERROUS SULFATE 325 MG TABLET.DR PO SCH ×2 (07:59→17:10)
[2019-09-29] MEDS: SODIUM BICARBONATE 650 MG TAB PO SCH ×2 (07:59→17:10)
[2019-09-29] MEDS: FAMOTIDINE/PF 20 MG/2 ML VIAL IV SCH ×2 (07:59→20:53)
[2019-09-29] MEDS: DOCUSATE SODIUM 100 MG CAP PO SCH (07:59)
[2019-09-29] MEDS: CLOPIDOGREL BISULFATE 75 MG TAB PO SCH (07:59)
[2019-09-29] MEDS: LISINOPRIL 20 MG TABLET PO SCH (07:59)
[2019-09-29] MEDS: AMLODIPINE BESYLATE 5 MG TAB PO SCH (07:59)
[2019-09-29] MEDS: FOLIC ACID/VITAMIN B COMP W-C 1 CAP TAB PO SCH (07:59)
[2019-09-29] MEDS: ENOXAPARIN SODIUM 60 MG/0.6 ML SQ SCH (08:00)
[2019-09-29] MEDS: SILODOSIN 8 MG PO SCH (08:00)
[2019-09-29] MEDS: GLIMEPIRIDE 2 MG TABLET PO SCH ×3 (08:00→17:10)
[2019-09-29] MEDS: HALOPERIDOL LACTATE 5 MG/ML VIAL IV SCH (16:59)
[2019-09-29] MEDS: ATORVASTATIN CALCIUM 20 MG TABLET PO SCH (17:09)
[2019-09-29] MEDS ORDERED: FUROSEMIDE 10 MG/ML 2ML VIAL IV SCH (17:15)
[2019-09-29] MEDS: FUROSEMIDE 10 MG/ML 2ML VIAL IV SCH (20:53)
[2019-09-29] MEDS: SENNOSIDES 8.6 MG TABLET PO SCH (20:53)
[2019-09-29] MEDS: LATANOPROST 2.5 ML DROPS OP SCH (20:55)
[2019-09-30] VITALS (10 sets, daily range): BP systolic 110–154; BP diastolic 43–60; PULSE 63–85; RESP 18–26; TEMP 97.8–98.4
[2019-09-30] MEDS: METHYLPREDNISOLONE SOD SUCC 40MG/ML 1ML IVP SCH ×3 (02:32→17:35)
[2019-09-30] MEDS: INSULIN LISPRO 100 UNIT/ML 3ML SQ SCH ×6 (06:34→17:00)
[2019-09-30] MEDS: INSULIN GLARGINE 100 UNITS/ML 10 ML VIAL SQ SCH ×2 (06:37→20:22)
--- NOTE | 2019-09-30 08:15 | NUR ---
PT IS AWAKE, AND COHERENT. O2 SAT IS 100% ON 40L HIGH FLOW NASAL CANNULA., DECREASED O2 FLOW PER MD ORDER TO TITRATE O2 DOWN TO MAINTAIN O2 SAT ABOVE 92%
[2019-09-30] MEDS: SILODOSIN 8 MG PO SCH (09:00)
[2019-09-30] MEDS: FAMOTIDINE/PF 20 MG/2 ML VIAL IV SCH ×2 (09:25→20:20)
[2019-09-30] MEDS: ENOXAPARIN SODIUM 60 MG/0.6 ML SQ SCH (09:27)
[2019-09-30] MEDS: CLOPIDOGREL BISULFATE 75 MG TAB PO SCH (09:28)
[2019-09-30] MEDS: METOPROLOL TARTRATE 25 MG TAB PO SCH ×2 (09:28→20:21)
[2019-09-30] MEDS: AMLODIPINE BESYLATE 5 MG TAB PO SCH (09:29)
[2019-09-30] MEDS: ASPIRIN 81 MG EC TAB PO SCH (09:29)
[2019-09-30] MEDS: FOLIC ACID/VITAMIN B COMP W-C 1 CAP TAB PO SCH (09:29)
[2019-09-30] MEDS: DOCUSATE SODIUM 100 MG CAP PO SCH (09:29)
[2019-09-30] MEDS: FUROSEMIDE 10 MG/ML 2ML VIAL IV SCH ×2 (09:30→20:21)
[2019-09-30] MEDS: SODIUM BICARBONATE 650 MG TAB PO SCH ×2 (09:34→17:33)
[2019-09-30] MEDS: FERROUS SULFATE 325 MG TABLET.DR PO SCH ×2 (09:34→17:32)
[2019-09-30] MEDS: GUAIFENESIN-DM 200/20 MG 10 ML PO PRN ×2 (09:34→17:32)
[2019-09-30] MEDS: GLIMEPIRIDE 2 MG TABLET PO SCH ×2 (09:36→17:32)
[2019-09-30] MEDS: VANCOMYCIN 1GM+NS 250ML 250 ML IV SCH ×2 (09:36→20:23)
[2019-09-30] MEDS: LISINOPRIL 20 MG TABLET PO SCH (09:39)
--- NOTE | 2019-09-30 14:00 | NUR ---
SET UP A PHONE IN HIS ROOM. PT IS ABLE TO FOLLOW DIRECTIONS IN USING PHONE AND IS ABLE TO GRASP THE PHONE WITH HIS HANDS
--- NOTE | 2019-09-30 15:05 | NUR ---
FOLLOW UP COMPLETED. CONTINUE P.O. Pt TOLERATING REGULAR TEXTURE, THIN LIQUIDS WITH NO OVERT S/S OF ASPIRATION. Pt TOOK PILLS WHOLE TODAY. Pt ABLE TO EAT INDEPENDENTLY FOR LUNCH. Pt CURRENTLY ON 10L O2 VIA NC. RECOMMEND CONTINUED P.O. IF Pt'S RESPIRATORY REMAINS STABLE. NPO IS RECOMMENDED IF RESPIRATORY STATUS DECLINES. Addendum: 09/30/19 at 1508 by BUZZ MAGAÑA [facility] Amended: Links added.
[2019-09-30] MEDS: ATORVASTATIN CALCIUM 20 MG TABLET PO SCH (17:33)
[2019-09-30] MEDS: HALOPERIDOL LACTATE 5 MG/ML VIAL IV SCH (17:49)
--- NOTE | 2019-09-30 18:14 | NUR ---
TOLERATING 8LITERS OF FLOW WHILE AWAKE. PT FALLS ASLEEP AND DESATURATES.
[2019-09-30] MEDS: SENNOSIDES 8.6 MG TABLET PO SCH (20:20)
[2019-09-30] MEDS: LATANOPROST 2.5 ML DROPS OP SCH (20:23)
[2019-10-01] VITALS (10 sets, daily range): BP systolic 114–141; BP diastolic 31–69; PULSE 64–110; RESP 18–26; TEMP 97.7–98.2
[2019-10-01] MEDS: METHYLPREDNISOLONE SOD SUCC 40MG/ML 1ML IVP SCH ×3 (01:17→16:13)
[2019-10-01] MEDS: INSULIN LISPRO 100 UNIT/ML 3ML SQ SCH ×7 (06:46→21:20)
[2019-10-01] MEDS: INSULIN GLARGINE 100 UNITS/ML 10 ML VIAL SQ SCH ×2 (06:48→21:21)
--- NOTE | 2019-10-01 08:00 | NUR ---
ASSESSMENT PT IS AAOX3 DENIES CP DENIES NV DENIES SOB WHILE AT REST, BREATHING PATTERN IS EVEN AND UNLABORED, ON O2 VIA HIGHFLOW . AM MEDS GIVEN, ASSISTED WITH BREAKFAST. NO COMPLAINTS. CALL LIGHT WITHIN REACH.
[2019-10-01] MEDS: FUROSEMIDE 10 MG/ML 2ML VIAL IV SCH ×2 (08:16→21:19)
[2019-10-01] MEDS: FAMOTIDINE/PF 20 MG/2 ML VIAL IV SCH ×2 (08:16→21:18)
[2019-10-01] MEDS: ASPIRIN 81 MG EC TAB PO SCH (08:17)
[2019-10-01] MEDS: DOCUSATE SODIUM 100 MG CAP PO SCH (08:17)
[2019-10-01] MEDS: AMLODIPINE BESYLATE 5 MG TAB PO SCH (08:17)
[2019-10-01] MEDS: LISINOPRIL 20 MG TABLET PO SCH (08:17)
[2019-10-01] MEDS: FERROUS SULFATE 325 MG TABLET.DR PO SCH ×2 (08:17→16:00)
[2019-10-01] MEDS: SODIUM BICARBONATE 650 MG TAB PO SCH ×2 (08:17→15:59)
[2019-10-01] MEDS: GLIMEPIRIDE 2 MG TABLET PO SCH ×2 (08:17→16:00)
[2019-10-01] MEDS: FOLIC ACID/VITAMIN B COMP W-C 1 CAP TAB PO SCH (08:18)
[2019-10-01] MEDS: CLOPIDOGREL BISULFATE 75 MG TAB PO SCH (08:18)
[2019-10-01] MEDS: METOPROLOL TARTRATE 25 MG TAB PO SCH ×2 (08:18→21:18)
[2019-10-01] MEDS: SILODOSIN 8 MG PO SCH (08:19)
[2019-10-01] MEDS: ENOXAPARIN SODIUM 60 MG/0.6 ML SQ SCH (08:21)
[2019-10-01] MEDS: VANCOMYCIN 1GM+NS 250ML 250 ML IV SCH (09:00)
--- NOTE | 2019-10-01 09:38 | NUR ---
ELLIE MARROQUIN HELD PER [facility] RECS ORDERED REPEAT TROUGH FOR TONIGHT PER PHARMACY RECS
--- NOTE | 2019-10-01 11:49 | NUR ---
FOLLOW UP COMPLETED. PRODUCT GRADER COORDINATED WITH NURSE JARQUIN AT THIS TIME. Pt CURRENTLY TOLERATING P.O. OF MECHANICAL SOFT, THIN LIQUIDS WITH NO OVERT S.S OF ASPIRATION. Pt TAKING PILLS WHOLE WITH NO DESATURATION. RECOMMEND CONTINUED P.O. DIET OF MECHANICAL SOFT, THIN LIQUIDS; PILLS WHOLE WITH LIQUIDS. PRODUCT GRADER WILL CONTINUE TO FOLLOW Pt. Addendum: 10/01/19 at 1158 by BUZZ MAGAÑA [facility] Amended: Links added.
--- NOTE | 2019-10-01 13:15 | NUR ---
DR Majano AND JASON NOLEN ROUNDED DR Majnao CANCELLED PT EVAL ORDER. HOLD OFF UNTIL ORDERED AGAIN.
--- NOTE | 2019-10-01 15:03 | NUR ---
CANCELLED PHYSICAL THERAPY EVALUATION REQUESTED BY DR. SUMAN HUSTON. CHINEDU JARQUIN AWARE. Addendum: 10/01/19 at 1507 by ADELINA MOORE, PT PT Amended: Links added.
[2019-10-01] MEDS: ATORVASTATIN CALCIUM 20 MG TABLET PO SCH (16:00)
[2019-10-01] MEDS: SENNOSIDES 8.6 MG TABLET PO SCH (21:18)
[2019-10-01] MEDS: LATANOPROST 2.5 ML DROPS OP SCH (21:19)
[2019-10-02] VITALS (11 sets, daily range): BP systolic 125–152; BP diastolic 57–86; PULSE 65–88; RESP 18–24; TEMP 98–98.9
[2019-10-02] MEDS: METHYLPREDNISOLONE SOD SUCC 40MG/ML 1ML IVP SCH ×4 (01:47→22:16)
[2019-10-02] MEDS: INSULIN LISPRO 100 UNIT/ML 3ML SQ SCH ×7 (06:39→21:00)
[2019-10-02] MEDS: INSULIN GLARGINE 100 UNITS/ML 10 ML VIAL SQ SCH ×2 (06:50→22:15)
[2019-10-02] MEDS: SILODOSIN 8 MG PO SCH (09:00)
[2019-10-02] MEDS: DOCUSATE SODIUM 100 MG CAP PO SCH (09:30)
[2019-10-02] MEDS: ASPIRIN 81 MG EC TAB PO SCH (09:30)
[2019-10-02] MEDS: SODIUM BICARBONATE 650 MG TAB PO SCH ×2 (09:30→17:11)
[2019-10-02] MEDS: FERROUS SULFATE 325 MG TABLET.DR PO SCH ×2 (09:31→17:11)
[2019-10-02] MEDS: LISINOPRIL 20 MG TABLET PO SCH (09:31)
[2019-10-02] MEDS: GLIMEPIRIDE 2 MG TABLET PO SCH ×2 (09:31→17:11)
[2019-10-02] MEDS: CLOPIDOGREL BISULFATE 75 MG TAB PO SCH (09:31)
[2019-10-02] MEDS: METOPROLOL TARTRATE 25 MG TAB PO SCH ×2 (09:31→22:16)
[2019-10-02] MEDS: FAMOTIDINE/PF 20 MG/2 ML VIAL IV SCH ×2 (09:31→22:15)
[2019-10-02] MEDS: FOLIC ACID/VITAMIN B COMP W-C 1 CAP TAB PO SCH (09:31)
[2019-10-02] MEDS: AMLODIPINE BESYLATE 5 MG TAB PO SCH (09:31)
[2019-10-02] MEDS: FUROSEMIDE 10 MG/ML 2ML VIAL IV SCH ×2 (09:32→22:15)
[2019-10-02] MEDS: ENOXAPARIN SODIUM 60 MG/0.6 ML SQ SCH (09:32)
--- NOTE | 2019-10-02 14:01 | NUR ---
RD FOLLOW UP Pt tolerating 75gm CC, Soft/Storey diet order with no report of GI distress. PO intake at 75%. Pt with increased nutritional needs. Recommend 60mL ProMod QD. RD to continue to monitor. Please notify as additional nutrition concerns arise. thank you. Addendum: 10/02/19 at [address] Amended: Links added.
--- NOTE | 2019-10-02 14:23 | NUR ---
FOLLOW UP COMPLETED. STEAM TABLE WORKER COORDINATED WITH NURSE MARTINEZ. Pt CURRENTLY TOLERATING P.O. OF SOFT DIET, THIN LIQUIDS WITH NO OVERT S/S OF ASPIRATION. Pt TAKING PILLS WHOLE. RECOMMEND CONTINUED P.O. Pt MORE ALERT AND ABLE TO FEED INDEPENDENTLY. STEAM TABLE WORKER WILL CONTINUE TO FOLLOW Pt. Addendum: 10/02/19 at 1427 by BUZZ MAGAÑA, [facility] Amended: Links added.
--- NOTE | 2019-10-02 14:55 | NUR ---
DC PLAN SPOKE TO NURSE AND TO JASON NOLEN REGARDING PATIENT BEING APPROPRIATE FOR LTAC. SAID PATIENT STABLE TO SEND REFERRAL TO LTAC. INFO SENT TO [facility] TO SEE IF PATIENT WOULD BE A ACCEPTED SINCE HE IS COVID POSITIVE. Addendum: 10/02/19 at 1504 by JANINA GALLO RN CM Amended: Links added.
[2019-10-02] MEDS: ATORVASTATIN CALCIUM 20 MG TABLET PO SCH (17:11)
[2019-10-02] MEDS: LATANOPROST 2.5 ML DROPS OP SCH (21:00)
[2019-10-02] MEDS: SENNOSIDES 8.6 MG TABLET PO SCH (22:16)
[2019-10-03] VITALS (9 sets, daily range): BP systolic 112–146; BP diastolic 54–74; PULSE 61–78; RESP 20–22; TEMP 97.6–98.4
[2019-10-03] MEDS: INSULIN LISPRO 100 UNIT/ML 3ML SQ SCH ×7 (06:45→21:00)
[2019-10-03] MEDS: INSULIN GLARGINE 100 UNITS/ML 10 ML VIAL SQ SCH (07:30)
[2019-10-03] MEDS: ENOXAPARIN SODIUM 60 MG/0.6 ML SQ SCH (08:51)
[2019-10-03] MEDS: FERROUS SULFATE 325 MG TABLET.DR PO SCH ×2 (08:52→17:45)
[2019-10-03] MEDS: ASPIRIN 81 MG EC TAB PO SCH (08:52)
[2019-10-03] MEDS: AMLODIPINE BESYLATE 5 MG TAB PO SCH (08:52)
[2019-10-03] MEDS: FOLIC ACID/VITAMIN B COMP W-C 1 CAP TAB PO SCH (08:52)
[2019-10-03] MEDS: LISINOPRIL 20 MG TABLET PO SCH (08:52)
[2019-10-03] MEDS: SODIUM BICARBONATE 650 MG TAB PO SCH ×2 (08:52→17:46)
[2019-10-03] MEDS: CLOPIDOGREL BISULFATE 75 MG TAB PO SCH (08:52)
[2019-10-03] MEDS: DOCUSATE SODIUM 100 MG CAP PO SCH (08:52)
[2019-10-03] MEDS: METOPROLOL TARTRATE 25 MG TAB PO SCH ×2 (08:52→21:28)
[2019-10-03] MEDS: FAMOTIDINE/PF 20 MG/2 ML VIAL IV SCH ×2 (08:53→21:28)
[2019-10-03] MEDS: FUROSEMIDE 10 MG/ML 2ML VIAL IV SCH ×2 (08:53→21:29)
[2019-10-03] MEDS: METHYLPREDNISOLONE SOD SUCC 40MG/ML 1ML IVP SCH ×2 (08:53→17:45)
[2019-10-03] MEDS: GLIMEPIRIDE 2 MG TABLET PO SCH ×2 (08:54→17:45)
[2019-10-03] MEDS: SILODOSIN 8 MG PO SCH (09:00)
[2019-10-03] MEDS ORDERED: SODIUM CHLORIDE 0.9% 10 ML VIAL IVP PRN (10:00)
--- NOTE | 2019-10-03 11:09 | NUR ---
FOLLOW UP COMPLETED. Pt TOLERATING P.O. AT THIS TIME. Pt CURRENTLY ON REGULAR TEXTURE, THIN LIQUIDS. RECOMMEND CONTINUE P.O. NO OVERT S/S OF ASPIRATION AT THIS TIME. Addendum: 10/03/19 at 1110 by BUZZ MAGAÑA, [facility] Amended: Links added.
--- NOTE | 2019-10-03 16:00 | NUR ---
Pt. agitated and requesting call of 911. Trying to get out of the bed. Changed pt. after BM and pt talk to family over the phone. Pt calm down after resting in bed. No s/s of distress. NC @2lpm sating >92% Addendum: 10/03/19 at 1856 by SANCHO BACH RN RN Amended: Links added.
[2019-10-03] MEDS: ATORVASTATIN CALCIUM 20 MG TABLET PO SCH (17:45)
[2019-10-03] MEDS: SENNOSIDES 8.6 MG TABLET PO SCH (21:28)
[2019-10-03] MEDS: LATANOPROST 2.5 ML DROPS OP SCH (21:32)
[2019-10-04] VITALS (8 sets, daily range): BP systolic 111–136; BP diastolic 51–84; PULSE 62–78; RESP 18–21; TEMP 96.9–98.4
[2019-10-04] MEDS: METHYLPREDNISOLONE SOD SUCC 40MG/ML 1ML IVP SCH ×2 (01:21→09:56)
--- NOTE | 2019-10-04 05:42 | NUR ---
PT IS LAYING IN BED COMFORTABLY. PT DID NOT SLEEP TONIGHT EVEN WITH ENCOURAGEMENT TO REST. PT IS SATURATING WELL WITH 3L O2. PT HAS NO COMPLAINTS OR CONCERNS AND IS REPORTING 0/10 PAIN. CALL LIGHT WITHIN REACH. WILL CONTINUE TO MONITOR
[2019-10-04] MEDS: INSULIN LISPRO 100 UNIT/ML 3ML SQ SCH ×7 (07:30→21:00)
[2019-10-04] MEDS: DOCUSATE SODIUM 100 MG CAP PO SCH (09:00)
[2019-10-04] MEDS: SILODOSIN 8 MG PO SCH (09:00)
[2019-10-04] MEDS: FOLIC ACID/VITAMIN B COMP W-C 1 CAP TAB PO SCH (09:56)
[2019-10-04] MEDS: METOPROLOL TARTRATE 25 MG TAB PO SCH ×2 (09:56→21:48)
[2019-10-04] MEDS: ASPIRIN 81 MG EC TAB PO SCH (09:56)
[2019-10-04] MEDS: AMLODIPINE BESYLATE 5 MG TAB PO SCH (09:56)
[2019-10-04] MEDS: CLOPIDOGREL BISULFATE 75 MG TAB PO SCH (09:56)
[2019-10-04] MEDS: ENOXAPARIN SODIUM 60 MG/0.6 ML SQ SCH (09:57)
[2019-10-04] MEDS: FAMOTIDINE/PF 20 MG/2 ML VIAL IV SCH ×2 (09:57→21:49)
[2019-10-04] MEDS: GLIMEPIRIDE 2 MG TABLET PO SCH ×2 (09:58→17:15)
[2019-10-04] MEDS: FUROSEMIDE 10 MG/ML 2ML VIAL IV SCH (10:03)
[2019-10-04] MEDS: FERROUS SULFATE 325 MG TABLET.DR PO SCH ×2 (10:05→17:15)
[2019-10-04] MEDS: SODIUM BICARBONATE 650 MG TAB PO SCH ×2 (10:05→17:15)
[2019-10-04] MEDS: LISINOPRIL 20 MG TABLET PO SCH (10:06)
--- NOTE | 2019-10-04 16:29 | NUR ---
Attempted to turn pt to prevent pressure ulcer. Pt refused.
[2019-10-04] MEDS: ATORVASTATIN CALCIUM 20 MG TABLET PO SCH (17:15)
[2019-10-04] MEDS: SENNOSIDES 8.6 MG TABLET PO SCH (21:48)
[2019-10-04] MEDS: LATANOPROST 2.5 ML DROPS OP SCH (21:49)
[2019-10-05] VITALS (8 sets, daily range): BP systolic 101–143; BP diastolic 51–73; PULSE 64–90; RESP 18–20; TEMP 98.4–98.7
--- NOTE | 2019-10-05 04:55 | NUR ---
PT I SLAYING IN BED RESTING. PT GOT MINIMAL SLEEP DURING THE NIGHT BUT HAD NO OTHER CONCERNS OR COMPLAINTS. PT IS IN NO PAIN. WILL CONTINUE TO MONITOR
--- NOTE | 2019-10-05 07:06 | NUR ---
PT IS BEING TURNED q2h VIA INFLATING MATTRESS
[2019-10-05] MEDS: INSULIN LISPRO 100 UNIT/ML 3ML SQ SCH ×6 (07:30→20:53)
--- NOTE | 2019-10-05 08:30 | NUR ---
Pt has stage II to buttock. Cleaned with NS pt dry. Applied barrier cream and mepilex. Sat pt up to chair position to eat breakfast. Pt refused to turn side to side. Will continue to monitor and encourage turning. Addendum: 10/05/19 at 1445 by SANCHO BACH RN RN Amended: Links added.
[2019-10-05] MEDS: FOLIC ACID/VITAMIN B COMP W-C 1 CAP TAB PO SCH (08:54)
[2019-10-05] MEDS: FERROUS SULFATE 325 MG TABLET.DR PO SCH ×2 (08:54→18:29)
[2019-10-05] MEDS: ASPIRIN 81 MG EC TAB PO SCH (08:54)
[2019-10-05] MEDS: AMLODIPINE BESYLATE 5 MG TAB PO SCH (08:54)
[2019-10-05] MEDS: METOPROLOL TARTRATE 25 MG TAB PO SCH ×2 (08:54→20:51)
[2019-10-05] MEDS: GLIMEPIRIDE 2 MG TABLET PO SCH ×2 (08:54→18:29)
[2019-10-05] MEDS: PREDNISONE 20 MG TABLET PO SCH (08:55)
[2019-10-05] MEDS: FAMOTIDINE/PF 20 MG/2 ML VIAL IV SCH ×2 (08:55→20:50)
[2019-10-05] MEDS: DOCUSATE SODIUM 100 MG CAP PO SCH (08:55)
[2019-10-05] MEDS: ENOXAPARIN SODIUM 60 MG/0.6 ML SQ SCH (08:55)
[2019-10-05] MEDS: CLOPIDOGREL BISULFATE 75 MG TAB PO SCH (08:55)
[2019-10-05] MEDS: SODIUM BICARBONATE 650 MG TAB PO SCH ×2 (08:55→18:29)
[2019-10-05] MEDS: LISINOPRIL 20 MG TABLET PO SCH (08:57)
[2019-10-05] MEDS: SILODOSIN 8 MG PO SCH (08:57)
--- NOTE | 2019-10-05 14:46 | NUR ---
Pt on the phone with daughter. Addendum: 10/05/19 at 1447 by SANCHO BACH RN RN Amended: Links added.
[2019-10-05] MEDS: ATORVASTATIN CALCIUM 20 MG TABLET PO SCH (18:29)
[2019-10-05] MEDS ORDERED: ENOXAPARIN SODIUM 80 MG/0.8 ML SQ ONE (18:45)
[2019-10-05] MEDS: SENNOSIDES 8.6 MG TABLET PO SCH (19:58)
[2019-10-05] MEDS: LATANOPROST 2.5 ML DROPS OP SCH (20:54)
[2019-10-06] VITALS (8 sets, daily range): BP systolic 99–137; BP diastolic 46–61; PULSE 62–75; RESP 18–20; TEMP 98.2–98.5
--- NOTE | 2019-10-06 02:18 | NUR ---
PT IS RESTING IN BED COMFORTABLY. HE DOES NOT SLEEP DURING THE NIGHT. TURNING PATIENT Q2H AND APPLYING BARRIER CREAMS AND MEPILEX TO BUTTOCKS. WILL CONTINUE TO MONITOR.
[2019-10-06] MEDS: INSULIN LISPRO 100 UNIT/ML 3ML SQ SCH ×7 (07:30→20:42)
[2019-10-06] MEDS: ENOXAPARIN SODIUM 1 MG/KG SQ SCH (08:00)
[2019-10-06] MEDS ORDERED: ENOXAPARIN SODIUM 80 MG/0.8 ML SQ ONE (08:00)
--- NOTE | 2019-10-06 08:05 | NUR ---
ENCOUNTERED PATIENT LAYING ON BED WITH NO C/O SOB AT THIS TIME. HE IS ON 3L OF O2 PER NASAL CANNULA. FULL ASSESSMENT DONE. REPOSITIONED PATIENT. HE IS A/OX 3. PICC LINE IN PLACE. ELEVATED BILATERAL ARMS THAT ARE EDEMATOUS ON PILLOWS. MAINTAINED ENHANCED ISOLATION.
[2019-10-06] MEDS: ASPIRIN 81 MG EC TAB PO SCH (08:20)
[2019-10-06] MEDS: PREDNISONE 20 MG TABLET PO SCH (08:20)
[2019-10-06] MEDS: AMLODIPINE BESYLATE 5 MG TAB PO SCH (08:21)
[2019-10-06] MEDS: FOLIC ACID/VITAMIN B COMP W-C 1 CAP TAB PO SCH (08:21)
[2019-10-06] MEDS: METOPROLOL TARTRATE 25 MG TAB PO SCH ×2 (08:21→20:38)
[2019-10-06] MEDS: LISINOPRIL 20 MG TABLET PO SCH (08:21)
[2019-10-06] MEDS: FERROUS SULFATE 325 MG TABLET.DR PO SCH ×2 (08:21→16:30)
[2019-10-06] MEDS: GLIMEPIRIDE 2 MG TABLET PO SCH ×2 (08:21→16:30)
[2019-10-06] MEDS: SODIUM BICARBONATE 650 MG TAB PO SCH ×2 (08:21→16:30)
[2019-10-06] MEDS: FAMOTIDINE/PF 20 MG/2 ML VIAL IV SCH ×2 (08:22→20:38)
[2019-10-06] MEDS: SILODOSIN 8 MG PO SCH (08:22)
[2019-10-06] MEDS: DOCUSATE SODIUM 100 MG CAP PO SCH (08:22)
[2019-10-06] MEDS: CLOPIDOGREL BISULFATE 75 MG TAB PO SCH (08:22)
--- NOTE | 2019-10-06 08:30 | NUR ---
ASSISTED PATIENT WITH BREAKFAST. AM MEDS TAKEN. O2 SAT AT 93%. KEPT PATIENT ON 3L PER N/C.
--- NOTE | 2019-10-06 15:10 | NUR ---
ASSISTED PATIENT DIALING DAUGHTER'S NUMBER. PATIENT IS SPEAKING WITH HER RIGHT NOW.
--- NOTE | 2019-10-06 16:00 | NUR ---
DR. HO IS MAKING HIS ROUNDS OUTSIDE OF PATIENT'S ROOM. NO CHANGE IN TREATMENT AT THIS TIME. OK TO TRANSFER TO LTAC ONCE ACCEPTED.
[2019-10-06] MEDS: ATORVASTATIN CALCIUM 20 MG TABLET PO SCH (16:29)
--- NOTE | 2019-10-06 18:28 | NUR ---
Decreased o2 nc flow to 2L. Pt's o2 sat: 98%. Will continue to titrate as tolerated.
[2019-10-06] MEDS: SENNOSIDES 8.6 MG TABLET PO SCH (19:14)
[2019-10-06] MEDS: LATANOPROST 2.5 ML DROPS OP SCH (20:35)
[2019-10-07] VITALS (7 sets, daily range): BP systolic 100–135; BP diastolic 41–60; PULSE 64–75; RESP 18–20; TEMP 97.4–98.5
[2019-10-07] MEDS: INSULIN LISPRO 100 UNIT/ML 3ML SQ SCH ×7 (07:30→21:05)
[2019-10-07] MEDS: ENOXAPARIN SODIUM 1 MG/KG SQ SCH (08:00)
[2019-10-07] MEDS: SODIUM BICARBONATE 650 MG TAB PO SCH ×2 (08:51→16:10)
[2019-10-07] MEDS: LISINOPRIL 20 MG TABLET PO SCH (08:52)
[2019-10-07] MEDS: AMLODIPINE BESYLATE 5 MG TAB PO SCH (08:52)
[2019-10-07] MEDS: CLOPIDOGREL BISULFATE 75 MG TAB PO SCH (08:52)
[2019-10-07] MEDS: DOCUSATE SODIUM 100 MG CAP PO SCH (08:52)
[2019-10-07] MEDS: METOPROLOL TARTRATE 25 MG TAB PO SCH ×2 (08:52→20:51)
[2019-10-07] MEDS: PREDNISONE 20 MG TABLET PO SCH (08:52)
[2019-10-07] MEDS: ASPIRIN 81 MG EC TAB PO SCH (08:52)
[2019-10-07] MEDS: FERROUS SULFATE 325 MG TABLET.DR PO SCH ×2 (08:52→16:10)
[2019-10-07] MEDS: FOLIC ACID/VITAMIN B COMP W-C 1 CAP TAB PO SCH (08:52)
[2019-10-07] MEDS: FAMOTIDINE/PF 20 MG/2 ML VIAL IV SCH ×2 (08:53→20:51)
[2019-10-07] MEDS: SILODOSIN 8 MG PO SCH (08:53)
[2019-10-07] MEDS: GLIMEPIRIDE 2 MG TABLET PO SCH ×2 (08:59→16:10)
--- NOTE | 2019-10-07 09:46 | NUR ---
FOLLOW UP COMPLETED. Pt WITH IMPROVED RESPIRATORY STATUS AT THIS TIME. RECOMMEND CONTINUED P.O. OF REGULAR TEXTURE, THIN LIQUIDS FOR ALL MEALS AND SNACKS. NO OVERT S/S OF ASPIRATION PRESENT AT THIS TIME. SKILLED SPEECH THERAPY IS NOT WARRANTED AT THIS TIME. Addendum: 10/07/19 at 0947 by BUZZ MAGAÑA, [facility] Amended: Links added.
--- NOTE | 2019-10-07 14:33 | NUR ---
DC PLAN SPOKE WITH DAUGHTER. PATIENT HAS IMPROVED. DOES NOT WANT [facility]. GAVE OKAY TO SEND REFERRAL TO LTAC. EXPLAINED THAT [facility] DOES NOT TAKE COVID POSITIVE PATIENTS. INFO SENT. Addendum: 10/07/19 at 1435 by JANINA GALLO RN CM Amended: Links added.
[2019-10-07] MEDS: ATORVASTATIN CALCIUM 20 MG TABLET PO SCH (16:10)
[2019-10-07] MEDS: SENNOSIDES 8.6 MG TABLET PO SCH (19:54)
[2019-10-07] MEDS: LATANOPROST 2.5 ML DROPS OP SCH (20:51)
[2019-10-08] VITALS (9 sets, daily range): BP systolic 106–142; BP diastolic 36–76; PULSE 65–77; RESP 18–20; TEMP 97.4–98.9
[2019-10-08] MEDS: INSULIN LISPRO 100 UNIT/ML 3ML SQ SCH ×7 (07:30→20:40)
[2019-10-08] MEDS: ENOXAPARIN SODIUM 1 MG/KG SQ SCH (08:00)
[2019-10-08] MEDS: DOCUSATE SODIUM 100 MG CAP PO SCH (08:31)
[2019-10-08] MEDS: PREDNISONE 20 MG TABLET PO SCH (08:31)
[2019-10-08] MEDS: LISINOPRIL 20 MG TABLET PO SCH (08:32)
[2019-10-08] MEDS: ASPIRIN 81 MG EC TAB PO SCH (08:32)
[2019-10-08] MEDS: SODIUM BICARBONATE 650 MG TAB PO SCH ×2 (08:32→16:22)
[2019-10-08] MEDS: FERROUS SULFATE 325 MG TABLET.DR PO SCH ×2 (08:32→16:22)
[2019-10-08] MEDS: AMLODIPINE BESYLATE 5 MG TAB PO SCH (08:32)
[2019-10-08] MEDS: METOPROLOL TARTRATE 25 MG TAB PO SCH ×2 (08:32→21:27)
[2019-10-08] MEDS: FOLIC ACID/VITAMIN B COMP W-C 1 CAP TAB PO SCH (08:32)
[2019-10-08] MEDS: CLOPIDOGREL BISULFATE 75 MG TAB PO SCH (08:32)
[2019-10-08] MEDS: FAMOTIDINE/PF 20 MG/2 ML VIAL IV SCH ×2 (08:32→21:27)
[2019-10-08] MEDS: GLIMEPIRIDE 2 MG TABLET PO SCH ×2 (08:33→16:22)
[2019-10-08] MEDS: SILODOSIN 8 MG PO SCH (08:58)
[2019-10-08] MEDS: ATORVASTATIN CALCIUM 20 MG TABLET PO SCH (16:22)
[2019-10-08] MEDS: SENNOSIDES 8.6 MG TABLET PO SCH (19:28)
[2019-10-08] MEDS: LATANOPROST 2.5 ML DROPS OP SCH (19:30)
[2019-10-08] MEDS: APIXABAN 2.5 MG TABLET PO SCH (21:27)
[2019-10-09] VITALS (8 sets, daily range): BP systolic 110–132; BP diastolic 43–78; PULSE 61–90; RESP 18–20; TEMP 97.4–98.5
[2019-10-09] MEDS: INSULIN LISPRO 100 UNIT/ML 3ML SQ SCH ×7 (07:30→20:22)
[2019-10-09] MEDS: DOCUSATE SODIUM 100 MG CAP PO SCH (07:54)
[2019-10-09] MEDS: ENOXAPARIN SODIUM 1 MG/KG SQ SCH (08:00)
[2019-10-09] MEDS: SILODOSIN 8 MG PO SCH (09:00)
[2019-10-09] MEDS: GLIMEPIRIDE 2 MG TABLET PO SCH ×2 (09:00→17:09)
[2019-10-09] MEDS: METOPROLOL TARTRATE 25 MG TAB PO SCH ×2 (09:04→20:22)
[2019-10-09] MEDS: PREDNISONE 20 MG TABLET PO SCH (09:05)
[2019-10-09] MEDS: LISINOPRIL 20 MG TABLET PO SCH (09:05)
[2019-10-09] MEDS: ASPIRIN 81 MG EC TAB PO SCH (09:05)
[2019-10-09] MEDS: SODIUM BICARBONATE 650 MG TAB PO SCH ×2 (09:05→17:09)
[2019-10-09] MEDS: FERROUS SULFATE 325 MG TABLET.DR PO SCH ×2 (09:05→17:09)
[2019-10-09] MEDS: AMLODIPINE BESYLATE 5 MG TAB PO SCH (09:06)
[2019-10-09] MEDS: FAMOTIDINE/PF 20 MG/2 ML VIAL IV SCH ×2 (09:06→20:22)
[2019-10-09] MEDS: CLOPIDOGREL BISULFATE 75 MG TAB PO SCH (09:06)
[2019-10-09] MEDS: FOLIC ACID/VITAMIN B COMP W-C 1 CAP TAB PO SCH (09:06)
[2019-10-09] MEDS: APIXABAN 2.5 MG TABLET PO SCH ×2 (09:06→20:22)
--- NOTE | 2019-10-09 09:45 | NUR ---
DC PLAN SPOKE TO DAUGHTER REGARDING LTAC DENYING PATIENT. SAID NOT APPROPRIATE FOR LEVEL OF LTAC. GAVE TELEPHONE CONSENT FOR [facility]. INFO SENT TO [place]. LOOKING OVER CLINICALS. REQUESTED MORE VITALS OF NO FEVER LAST 4 DAYS. Addendum: 10/09/19 at 0948 by JANINA GALLO RN CM Amended: Links added.
[2019-10-09] MEDS: ATORVASTATIN CALCIUM 20 MG TABLET PO SCH (17:09)
[2019-10-09] MEDS: SENNOSIDES 8.6 MG TABLET PO SCH (19:52)
[2019-10-09] MEDS: LATANOPROST 2.5 ML DROPS OP SCH (19:53)
[2019-10-10 01:19] VITALS: PULSE 66; RESP 20
[2019-10-10 03:12] VITALS: BP 148/59; PULSE 64; RESP 18; TEMP 98
[2019-10-10 07:48] VITALS: PULSE 67; RESP 20
[2019-10-10] MEDS: DOCUSATE SODIUM 100 MG CAP PO SCH (07:56)
[2019-10-10 08:00] VITALS: BP 123/85; PULSE 70; RESP 20; TEMP 98.1
[2019-10-10] MEDS: ENOXAPARIN SODIUM 1 MG/KG SQ SCH (08:00)
[2019-10-10] MEDS: SILODOSIN 8 MG PO SCH (09:00)
[2019-10-10] MEDS: APIXABAN 2.5 MG TABLET PO SCH (10:01)
[2019-10-10] MEDS: AMLODIPINE BESYLATE 5 MG TAB PO SCH (10:01)
[2019-10-10] MEDS: METOPROLOL TARTRATE 25 MG TAB PO SCH (10:01)
[2019-10-10] MEDS: FAMOTIDINE/PF 20 MG/2 ML VIAL IV SCH (10:01)
[2019-10-10] MEDS: CLOPIDOGREL BISULFATE 75 MG TAB PO SCH (10:01)
[2019-10-10] MEDS: ASPIRIN 81 MG EC TAB PO SCH (10:01)
[2019-10-10] MEDS: FOLIC ACID/VITAMIN B COMP W-C 1 CAP TAB PO SCH (10:01)
[2019-10-10] MEDS: PREDNISONE 20 MG TABLET PO SCH (10:02)
[2019-10-10] MEDS: LISINOPRIL 20 MG TABLET PO SCH (10:05)
[2019-10-10] MEDS: GLIMEPIRIDE 2 MG TABLET PO SCH (10:13)
[2019-10-10] MEDS: SODIUM BICARBONATE 650 MG TAB PO SCH (10:13)
[2019-10-10] MEDS: FERROUS SULFATE 325 MG TABLET.DR PO SCH (10:13)
[2019-10-10] MEDS: INSULIN LISPRO 100 UNIT/ML 3ML SQ SCH ×4 (10:15→12:12)
--- NOTE | 2019-10-10 10:26 | NUR ---
[facility] FOR IRU CALLED SAID PATIENT ACCEPTED. INFO GIVEN FOR MOT. TERRI NURSE, CHARGE NURSE, DAUGHTER OF ACCEPTANCE. PATIENT WILL BE GOING VIA EMS ON . FORMS SIGNED IN CHART. INCLUDING [facility]. Addendum: 10/10/19 at 1028 by JANINA GALLO RN Amended: Links added.
[2019-10-10 11:51] VITALS: BP 118/59; PULSE 73; RESP 20; TEMP 97.9
--- NOTE | 2019-10-10 15:57 | NUR ---
Report to [facility] Report given to Faustina nurse at [facility] covid unit. All questions answered. EMS contacted for transport.
[2019-10-10 16:00] VITALS: BP 117/47; PULSE 70; RESP 20; TEMP 97.7
--- NOTE | 2019-10-10 17:00 | NUR ---
Discharged to [facility] present to transport pt to [facility]. Report given to EMS. All belongings sent with pt. Telepack removed. Pt discharged to [facility].
== END 2019-10-10 17:30 | DRG 871 ==
LOC: EDH 11:59 → EDHIP 16:42 → 2DH 09-18 00:07 → 2AH 09-20 17:15
PROVIDERS: ADMIT Internal Medicine; ATTEND Internal Medicine
PROC: 30233K1 Transfusion of Nonautologous Frozen Plasma into Peripheral Vein, Percutaneous Approach (ICD-10-PCS; principal; 2019-09-20)
PROC: 02HV33Z Insertion of Infusion Device into Superior Vena Cava, Percutaneous Approach (ICD-10-PCS; 2019-09-22)
DX: A41.89 Other specified sepsis (principal); U07.1 COVID-19; J96.01 Acute respiratory failure with hypoxia; G93.41 Metabolic encephalopathy; J12.89 Other viral pneumonia; Z68.43 Body mass index [BMI] 50.0-59.9, adult; N17.9 Acute kidney failure, unspecified; M62.82 Rhabdomyolysis; E87.0 Hyperosmolality and hypernatremia; E66.01 Morbid (severe) obesity due to excess calories; Z74.01 Bed confinement status; E11.22 Type 2 diabetes mellitus with diabetic chronic kidney disease; E11.65 Type 2 diabetes mellitus with hyperglycemia; E78.5 Hyperlipidemia, unspecified; F03.90 Unspecified dementia, unspecified severity, without behavioral disturbance, psychotic disturbance, mood disturbance, and anxiety; G47.33 Obstructive sleep apnea (adult) (pediatric); I12.9 Hypertensive chronic kidney disease with stage 1 through stage 4 chronic kidney disease, or unspecified chronic kidney disease; I25.10 Atherosclerotic heart disease of native coronary artery without angina pectoris; N18.3 Chronic kidney disease, stage 3 (moderate); N40.0 Benign prostatic hyperplasia without lower urinary tract symptoms; R65.20 Severe sepsis without septic shock; E11.40 Type 2 diabetes mellitus with diabetic neuropathy, unspecified; Z82.49 Family history of ischemic heart disease and other diseases of the circulatory system; Z83.3 Family history of diabetes mellitus; Z87.891 Personal history of nicotine dependence; Z91.19 Patient's noncompliance with other medical treatment and regimen; Z95.810 Presence of automatic (implantable) cardiac defibrillator; Z95.5 Presence of coronary angioplasty implant and graft; Z90.49 Acquired absence of other specified parts of digestive tract; Z91.018 Allergy to other foods

== ENCOUNTER → 2020-05-25 | Outpatient (CLI) | payer MEDICARE ==
[~2020-05-25] MED LIST changes: +ALBUHFA IH; +AMLO-257 PO; +APIX2.5T PO; -CEFI200T PO; +DOCU-116 PO; +FERS325 PO; +FINA5TAB41 PO; +FOLI0.8T2 PO; +FURO40TA5 PO; +GLIM1TAB18 PO; +INSU100V SQ; -INSU100V33 SQ; +KETO5DRO39 OD; +LATA2.5D14 OP; -LISI-613 PO; +LISI20TA24 PO; -METO-409 PO; +METO25 PO; +PRED20B PO
== END | disposition home or self-care (01) ==
LOC: SHCH 10:50
PROVIDERS: ATTEND Internal Medicine Cardiovascular Disease
DX: R60.9 Edema, unspecified (principal)
CPT/HCPCS: 93970

== ENCOUNTER → 2020-06-03 | Outpatient (CLI) | payer MEDICARE | END | disposition home or self-care (01) | LOC: SHCH 14:24 | PROVIDERS: ATTEND Internal Medicine Cardiovascular Disease | DX: I10 Essential (primary) hypertension (principal); R55 Syncope and collapse | CPT/HCPCS: 93306 ==

== ENCOUNTER → 2021-12-21 | Outpatient (CLI) | payer MEDICARE ==
[~2021-12-21] VITALS: Ht 170.2 cm; Wt 141.5 kg
[~2021-12-21] MED LIST changes: +REGADENOSON 0.4 MG/5 ML PF SYG IVP SCH
== END | disposition home or self-care (01) ==
LOC: OIH 08:15
PROVIDERS: ATTEND Internal Medicine Cardiovascular Disease
DX: I10 Essential (primary) hypertension (principal); E78.5 Hyperlipidemia, unspecified; E11.9 Type 2 diabetes mellitus without complications; G47.33 Obstructive sleep apnea (adult) (pediatric); Z79.4 Long term (current) use of insulin; Z79.82 Long term (current) use of aspirin; Z79.02 Long term (current) use of antithrombotics/antiplatelets; Z79.899 Other long term (current) drug therapy; Z95.5 Presence of coronary angioplasty implant and graft; Z95.810 Presence of automatic (implantable) cardiac defibrillator
CPT/HCPCS: 78452; 96374; 93017; J2785; A9500 ×2

== ENCOUNTER 2022-02-14 06:48 | Observation (INO) | payer MEDICARE ==
[2022-02-10 11:20] LABS: BASOPHILS % (AUTO) 0.8 % (0.0-5.0); EOSINOPHILS % (AUTO) 6.5 % (0.0-8.0); HEMATOCRIT 41.7 % (42-54); LYMPHOCYTES % (AUTO) 11.4 % (21.0-51.0); MEAN CORPUSCULAR HEMOGLOBIN 28.6 pg (27.0-33.0); MEAN CORPUSCULAR HGB CONC 31.9 g/dL (32.0-36.0); MEAN CORPUSCULAR VOLUME 89.7 fL (79-99); MONOCYTES % (AUTO) 4.9 % (3.0-13.0); NEUTROPHILS % (AUTO) 75.9 % (40.0-77.0); PLATELET COUNT (AUTO) 212 K/uL (130-400); RED BLOOD CELL COUNT(AUTO) 4.65 MIL/uL (4.50-6.20); RED CELL DISTRIBUTION WIDTH 13.2 % (11.0-15.5); WHITE BLOOD COUNT (AUTO) 10.2 K/uL (4.8-10.8)
[2022-02-10 11:22] LABS: CREATININE 1.5 mg/dL (0.5-1.5); POTASSIUM 3.9 mmol/L (3.5-5.1)
[2022-02-10 11:28] LABS: INR 0.96 (0.85-1.15); PROTHROMBIN TIME 10.5 SEC (9.6-11.6)
[2022-02-10 11:29] LABS: PARTIAL THROMBOPLASTIN TIME 29.3 SEC (26.3-35.5)
[2022-02-10 11:41] LABS: B-TYPE NATRIURETIC PEPTIDE 112 pg/mL (0-100)
[2022-02-10 11:54] LABS: APPEARANCE,URINE CLEAR (CLEAR); BILIRUBIN,URINE NEGATIVE (NEGATIVE); COLOR,URINE COLORLESS (YELLOW); GLUCOSE, URINE (UA) >=1000 mg/dL (NEGATIVE); KETONES,URINE NEGATIVE (NEGATIVE); LEUKOCYTE ESTERASE ,URINE NEGATIVE Leu/uL (NEGATIVE); NITRATE,URINE NEGATIVE (NEGATIVE); OCCULT BLOOD,URINE NEGATIVE (NEGATIVE); PROTEIN,URINE 20 mg/dL (NEGATIVE); UROBILINOGEN,URINE 0.2 mg/dL (0.2-1.0)
[2022-02-10 11:57] LABS: RBC,URINE 0-1 /HPF (0-1); SQUAMOUS EPITHELIAL CELL,UR RARE /HPF (0-2); WBC,URINE 0-1 /HPF (0-1)
[2022-02-10 14:48] VITALS: BP 170/80
[~2022-02-14] VITALS: Ht 167.6 cm; Wt 138.4 kg
[2022-02-14] VITALS (23 sets, daily range): BP systolic 77–168; BP diastolic 32–60
[~2022-02-14 06:48] MED LIST changes: -ALBUHFA IH; -ALLO100T PO; +AMOX500C2 PO; -APIX2.5T PO; -BISA5TAB12 PO; +CLOP-31 PO; -CLOP75TA14 PO; -COLC0.6C3 PO; -CYCL30DR OU; +DAPA5TAB PO; -DOCU-116 PO; -FERR240T6 PO; -FISH1CAP63 PO; -FOLI1TAB61 PO; -GLIM1TAB18 PO; -INSU100V SQ; +INSU3INS5 SQ; -KETO5DRO39 OD; -LATA2.5D14 OP; +METO100T14 PO; -METO25 PO; -MIRA50TA PO; -PRED20B PO; -REGADENOSON 0.4 MG/5 ML PF SYG IVP SCH; -THIA100T75 PO
[2022-02-14] MEDS ORDERED: 0.9%NACL 1000ML 1,000 ML IV ONE (07:00)
[2022-02-14] MEDS ORDERED: LIDOCAINE HCL 1% 20 ML VIAL ONE (08:06)
[2022-02-14] MEDS ORDERED: MIDAZOLAM HCL 1 MG/ML 2ML VIAL ONE ×3 (08:07→12:40)
[2022-02-14] MEDS ORDERED: IOHEXOL 350 MG/ML 100ML INFUS..BTL IV ONE (08:07)
[2022-02-14] MEDS ORDERED: MEPERIDINE-PF 25 MG/ML SYG ONE ×2 (08:07→08:39)
[2022-02-14] MEDS ORDERED: IOHEXOL-350 50ML VIAL IV ONE (08:07)
[2022-02-14] MEDS ORDERED: NITROGLYCERIN 50MG VIAL ONE (08:07)
[2022-02-14] MEDS ORDERED: HEPARIN 10,000 UNIT/10ML (1,000 UNIT/ML) VIAL ONE (08:07)
[2022-02-14] MEDS ORDERED: IOHEXOL-350 75 ML VIAL IV ONE (09:04)
[2022-02-14] MEDS ORDERED: ONDANSETRON 4MG INJ IVP PRN (10:00)
[2022-02-14] MEDS ORDERED: ACETAMINOPHEN WITH CODEINE 1 TAB TAB PO PRN ×2 (10:00)
[2022-02-14] MEDS ORDERED: 0.9%NACL 1000ML 1,000 ML IV SCH (10:00)
[2022-02-14] MEDS ORDERED: FENTANYL CITRATE PF 50 MCG/1 ML 2ML VIAL ONE (12:40)
[2022-02-14] MEDS ORDERED: POTASSIUM CHLORIDE 20MEQ/100ML 100 ML IV PRN (16:00)
[2022-02-14] MEDS ORDERED: NITROGLYCERIN 0.4 MG SL TAB SL PRN (16:00)
[2022-02-14] MEDS ORDERED: ONDANSETRON 4MG INJ IV PRN (16:00)
[2022-02-14] MEDS ORDERED: POTASSIUM CHLORIDE 10% ELIXIR 20 MEQ/15 ML UDCUP PO PRN (16:00)
[2022-02-14] MEDS ORDERED: GUAIFENESIN-DM 200/20 MG 10 ML PO PRN (16:00)
[2022-02-14] MEDS ORDERED: GLUCAGON 1MG KIT 1 MG ML IM PRN (16:00)
[2022-02-14] MEDS ORDERED: MAG/ALUM/SIMETH 30 ML UDCUP PO PRN (16:00)
[2022-02-14] MEDS ORDERED: LIDOCAINE HCL-MPF 1% 2ML VIAL IV PRN (16:00)
[2022-02-14] MEDS ORDERED: DiphenhydrAMINE HCL 50 MG/ML VIAL IV PRN (16:00)
[2022-02-14] MEDS ORDERED: DEXTROSE 50%-WATER 50 ML DISP.SYRIN IV PRN (16:00)
[2022-02-14] MEDS ORDERED: DIPHENHYDRAMINE HCL 25 MG CAPSULE PO PRN (16:00)
[2022-02-14] MEDS ORDERED: ACETAMINOPHEN 325 MG TAB PO PRN ×2 (16:00)
[2022-02-14] MEDS ORDERED: KCL 20 MEQ ERTAB PO PRN (16:00)
[2022-02-14] MEDS ORDERED: MAGNESIUM 2GM PREMIX 50ML 50 ML IV PRN (16:00)
[2022-02-14] MEDS ORDERED: LACTULOSE 20 GM/30 ML UDCUP PO PRN (16:00)
[2022-02-14] MEDS: INSULIN HUMULIN R 100 UNIT/ML 3ML SQ SCH ×2 (16:30→21:18)
[2022-02-14] MEDS: FAMOTIDINE 20MG TAB PO SCH (16:56)
[2022-02-14] MEDS ORDERED: FAMOTIDINE 20MG VIAL IV SCH (21:00)
[2022-02-14] MEDS ORDERED: AMLODIPINE 5 MG TAB PO SCH (21:00)
[2022-02-14] MEDS ORDERED: LISINOPRIL 20 MG TABLET PO SCH (21:00)
[2022-02-14] MEDS: METOPROLOL TARTRATE 50 MG TAB PO SCH (21:27)
[2022-02-14] MEDS: SODIUM BICARBONATE 650 MG TAB PO SCH (21:27)
[2022-02-14] MEDS: FUROSEMIDE 40 MG TABLET PO SCH (21:27)
[2022-02-15 00:18] VITALS: BP 117/62
[2022-02-15 03:32] LABS: BASOPHILS % (AUTO) 0.5 % (0.0-5.0); EOSINOPHILS % (AUTO) 5.1 % (0.0-8.0); HEMATOCRIT 29.6 % (42-54); LYMPHOCYTES % (AUTO) 12.2 % (21.0-51.0); MEAN CORPUSCULAR HEMOGLOBIN 28.7 pg (27.0-33.0); MEAN CORPUSCULAR HGB CONC 32.1 g/dL (32.0-36.0); MEAN CORPUSCULAR VOLUME 89.4 fL (79-99); MONOCYTES % (AUTO) 5.8 % (3.0-13.0); NEUTROPHILS % (AUTO) 76.1 % (40.0-77.0); PLATELET COUNT (AUTO) 187 K/uL (130-400); RED BLOOD CELL COUNT(AUTO) 3.31 MIL/uL (4.50-6.20); RED CELL DISTRIBUTION WIDTH 13.2 % (11.0-15.5); WHITE BLOOD COUNT (AUTO) 10.5 K/uL (4.8-10.8)
[2022-02-15 03:37] LABS: CREATININE 1.9 mg/dL (0.5-1.5); MAGNESIUM 2.1 mg/dL (1.80-2.40); PHOSPHORUS 4.3 mg/dL (2.5-4.9); POTASSIUM 4.1 mmol/L (3.5-5.1)
[2022-02-15 04:06] VITALS: BP 117/42
[2022-02-15] MEDS ORDERED: 0.9%NACL 1000ML 1,000 ML IV SCH (07:00)
[2022-02-15] MEDS: INSULIN HUMULIN R 100 UNIT/ML 3ML SQ SCH ×2 (07:22→12:24)
[2022-02-15 08:33] VITALS: BP 118/43
[2022-02-15] MEDS ORDERED: ATORVASTATIN 20 MG TABLET PO SCH (09:00)
[2022-02-15] MEDS ORDERED: SILODOSIN 8 MG PO SCH (09:00)
[2022-02-15] MEDS ORDERED: Vitamin B Complex/Vit C/Folic Acid PO SCH (09:00)
[2022-02-15] MEDS ORDERED: FINASTERIDE 5 MG TABLET PO SCH (09:00)
[2022-02-15] MEDS ORDERED: FERROUS SULFATE 325 MG TABLET.DR PO SCH (09:00)
[2022-02-15] MEDS ORDERED: ASPIRIN 81 MG EC TAB PO SCH (09:00)
[2022-02-15] MEDS ORDERED: CLOPIDOGREL 75MG TAB PO SCH (09:00)
[2022-02-15] MEDS: SODIUM BICARBONATE 650 MG TAB PO SCH (09:23)
[2022-02-15] MEDS: FAMOTIDINE 20MG TAB PO SCH (09:23)
[2022-02-15] MEDS: FUROSEMIDE 40 MG TABLET PO SCH (09:24)
[2022-02-15] MEDS: METOPROLOL TARTRATE 50 MG TAB PO SCH (09:24)
[2022-02-15] MEDS ORDERED: ALLO100T PO (09:39)
[2022-02-15 12:02] VITALS: BP 113/55
[2022-02-15 12:30] LABS: POTASSIUM 4.2 mmol/L (3.5-5.1)
== END 2022-02-15 14:49 | disposition home or self-care (01) ==
LOC: DAH 06:48 → DAHIP 06:49 → DAH 06:49 → INTOOBSV 06:49 → 2AH 15:31
PROVIDERS: ADMIT Internal Medicine; ATTEND Internal Medicine
DX: I25.10 Atherosclerotic heart disease of native coronary artery without angina pectoris (principal); I12.9 Hypertensive chronic kidney disease with stage 1 through stage 4 chronic kidney disease, or unspecified chronic kidney disease; N18.31 Chronic kidney disease, stage 3a; E11.22 Type 2 diabetes mellitus with diabetic chronic kidney disease; E11.319 Type 2 diabetes mellitus with unspecified diabetic retinopathy without macular edema; E11.40 Type 2 diabetes mellitus with diabetic neuropathy, unspecified; G47.33 Obstructive sleep apnea (adult) (pediatric); E66.01 Morbid (severe) obesity due to excess calories; I25.5 Ischemic cardiomyopathy; I87.2 Venous insufficiency (chronic) (peripheral); M10.9 Gout, unspecified; N40.0 Benign prostatic hyperplasia without lower urinary tract symptoms; I72.9 Aneurysm of unspecified site; M79.89 Other specified soft tissue disorders; Z87.891 Personal history of nicotine dependence; Z95.0 Presence of cardiac pacemaker; Z79.4 Long term (current) use of insulin; Z79.82 Long term (current) use of aspirin; Z79.899 Other long term (current) drug therapy; Z98.890 Other specified postprocedural states; Z68.42 Body mass index [BMI] 45.0-49.9, adult
CPT/HCPCS: 80048 ×3; 83880; 85025 ×2; 85610; 85730; 81001; 36415 ×2; 71045; 93005; 93458; 96360; 96361; 85347; 82948 ×6; 76882 ×2; 83735; 84100; C1769; C1887 ×2; C1894; C1760; C1874; C1725; Q9965; G0378 ×23; J3010; J7030 ×2; J1644 ×2; J2250 ×2; J2175; J3490; Q9967 ×2; J1815 ×3; A4615; A4215; A4223 ×3; A4222; A4221; A4663; A4216; A4606; C9600; 96374; 96375; 99152; 99156; 99157

== ENCOUNTER → 2022-02-17 | Outpatient (CLI) | payer MEDICARE ==
[~2022-02-17] MED LIST changes: +ALLO100T PO; -SILO8CAP2 PO
[2022-02-17 12:25] LABS: CREATININE 1.7 mg/dL (0.5-1.5); POTASSIUM 4.3 mmol/L (3.5-5.1)
== END | disposition home or self-care (01) ==
LOC: LAB 11:03
PROVIDERS: ATTEND Internal Medicine Cardiovascular Disease
DX: I51.7 Cardiomegaly (principal); I87.2 Venous insufficiency (chronic) (peripheral)
CPT/HCPCS: 36415; 80048

== ENCOUNTER → 2022-03-01 | Outpatient (CLI) | payer MEDICARE | END | disposition home or self-care (01) | LOC: RAH 13:24 | PROVIDERS: ATTEND Internal Medicine Cardiovascular Disease | DX: I73.9 Peripheral vascular disease, unspecified (principal); M79.89 Other specified soft tissue disorders | CPT/HCPCS: 76882 ==

== ENCOUNTER → 2024-06-12 | Outpatient (CLI) | payer MEDICARE ==
[~2024-06-12] VITALS: Ht 167.6 cm; Wt 140.2 kg
--- NOTE | 2024-06-12 12:30 | EKG ---
[facility] Test Date: 2024-06-12 Test Time: 12:24:55 Pat Name: SUNDAR ANGELES Department: [facility] Room: Gender: M Nail Professional: [id number] : 1950 Requested By: Tyler HORTON Order Number: [id number] Reading MD: Roya Umana Measurements Intervals [place] Rate: 60 P: 58 WV: 73 QRS: 263 QRSD: 156 T: 72 QT: 492 QTc: 492 Interpretive Statements Ventricular-paced rhythm Compared to ECG 02/10/2022 11:58:16 No significant changes Electronically Signed On 06-14-2024 14:37:03 CDT by Roya Umana Please click the below link to view image of tracing.
[2024-06-12 12:31] LABS: BASOPHILS # (AUTO) 0.06 K/uL (0.00-0.20); BASOPHILS % (AUTO) 0.7 % (0.0-5.0); EOSINOPHILS # (AUTO) 0.47 K/uL (0.00-0.70); EOSINOPHILS % (AUTO) 5.5 % (0.0-8.0); HEMATOCRIT 41.2 % (42-54); IMMATURE GRANULOCYTE ABSOLUTE 0.05 K/uL (0-1); MEAN CORPUSCULAR HEMOGLOBIN 28.7 pg (27.0-33.0); MEAN CORPUSCULAR HGB CONC 31.8 g/dL (32.0-36.0); MEAN CORPUSCULAR VOLUME 90.2 fL (79-99); MONOCYTES # (AUTO) 0.5 K/uL (0.1-1.0); MONOCYTES % (AUTO) 5.8 % (3.0-13.0); NEUTROPHILS # (AUTO) 6.4 K/uL (1.8-7.7); NEUTROPHILS % (AUTO) 75.4 % (40.0-77.0); PLATELET COUNT (AUTO) 177 K/uL (130-400); RED BLOOD CELL COUNT(AUTO) 4.57 MIL/uL (4.50-6.20); RED CELL DISTRIBUTION WIDTH 12.9 % (11.0-15.5); WHITE BLOOD COUNT (AUTO) 8.5 K/uL (4.8-10.8)
[2024-06-12 12:39] VITALS: BP 185/67; PULSE 60; RESP 19; TEMP 99
[2024-06-12 12:47] LABS: CREATININE 1.5 mg/dL (0.5-1.3)
[2024-06-12 12:59] LABS: INR 0.98 (0.85-1.15); PROTHROMBIN TIME 10.4 SEC (9.6-11.6)
[2024-06-12 13:00] LABS: PARTIAL THROMBOPLASTIN TIME 27.1 SEC (26.3-35.5)
--- NOTE | 2024-06-13 16:26 | NUR ---
report reported to nishant oh plush weaver pt has osteomyelitis and is on antibiotics. pt was cancelled will need to see infectious disease doctor. pts spouse notified
== END ==
LOC: DAH 11:44 → EDSTATUS 12:00
PROVIDERS: ATTEND Internal Medicine Cardiovascular Disease
DX: Z01.818 Encounter for other preprocedural examination (principal); I42.0 Dilated cardiomyopathy; I50.32 Chronic diastolic (congestive) heart failure; Z79.82 Long term (current) use of aspirin; Z79.899 Other long term (current) drug therapy
CPT/HCPCS: 36415; 80048; 85025; 85610; 85730; 93005

== ENCOUNTER 2024-09-04 07:20 | Day surgery (SDC) | payer MEDICARE ==
[2024-09-02 12:52] LABS: BASOPHILS # (AUTO) 0.04 K/uL (0.00-0.20); BASOPHILS % (AUTO) 0.4 % (0.0-5.0); EOSINOPHILS # (AUTO) 0.53 K/uL (0.00-0.70); EOSINOPHILS % (AUTO) 5.4 % (0.0-8.0); HEMATOCRIT 36.4 % (42-54); IMMATURE GRANULOCYTE ABSOLUTE 0.06 K/uL (0-1); LYMPHOCYTES # (AUTO) 1.1 K/uL (1.0-4.8); LYMPHOCYTES % (AUTO) 10.8 % (21.0-51.0); MEAN CORPUSCULAR HEMOGLOBIN 28.1 pg (27.0-33.0); MEAN CORPUSCULAR VOLUME 90.5 fL (79-99); MONOCYTES # (AUTO) 0.5 K/uL (0.1-1.0); MONOCYTES % (AUTO) 5.1 % (3.0-13.0); NEUTROPHILS # (AUTO) 7.6 K/uL (1.8-7.7); NEUTROPHILS % (AUTO) 77.7 % (40.0-77.0); PLATELET COUNT (AUTO) 176 K/uL (130-400); RED BLOOD CELL COUNT(AUTO) 4.02 MIL/uL (4.50-6.20); RED CELL DISTRIBUTION WIDTH 14.4 % (11.0-15.5); WHITE BLOOD COUNT (AUTO) 9.7 K/uL (4.8-10.8)
[2024-09-02 13:02] LABS: CREATININE 1.7 mg/dL (0.5-1.3)
[2024-09-02 13:25] LABS: INR 1.04 (0.85-1.15)
--- NOTE | 2024-09-02 13:51 | EKG ---
[facility] Test Date: 2024-09-02 Test Time: 12:40:12 Pat Name: SUNDAR ANGELES Department: [facility] Room: Gender: M Steam Setter: [id number] : 1950 Requested By: Tyler HORTON Order Number: [id number] Reading MD: John Kelley Measurements Intervals [place] Rate: 50 P: 0 NV: 248 QRS: -72 QRSD: 145 T: 54 QT: 523 QTc: 477 Interpretive Statements Ventricular-paced rhythm Compared to ECG 06/12/2024 12:24:55 No significant changes Electronically Signed On 09-02-2024 22:17:22 CDT by John Kelley Please click the below link to view image of tracing.
[2024-09-02 14:02] VITALS: BP 149/69; PULSE 50; RESP 18; TEMP 99.5
[2024-09-04] VITALS (10 sets, daily range): BP systolic 133–166; BP diastolic 50–67; PULSE 50–61; RESP 10–21; TEMP 97.4–97.6
[~2024-09-04] VITALS: Ht 167.6 cm; Wt 141.9 kg
[~2024-09-04 07:20] MED LIST changes: -AMOX500C2 PO; +CIPR-478 PO; +CRESTOR PO; +HUMLIS7525 SQ; -INSU3INS5 SQ; +KETOROLAC OU; +LATA2.5D14 OU; +LEVO75CA6 PO; -ROSU10TA22 PO; +SEMA7TAB2 PO
[2024-09-04] MEDS: 0.9%NACL 1000ML 1,000 ML IV SCH (08:38)
[2024-09-04] MEDS ORDERED: BUPIvacaine/PF 0.25% 30ML VIAL IJ ONE (10:58)
[2024-09-04] MEDS ORDERED: LIDOCAINE HCL 1% MDV 50ML VIAL ONE (10:58)
[2024-09-04] MEDS ORDERED: ceFAZolin SODIUM 1 GM VIAL ONE (10:58)
[2024-09-04] MEDS ORDERED: SODIUM BICARB 50MEQ 50ML VIAL 50 ML ONE (10:58)
[2024-09-04] MEDS ORDERED: VANCOMYCIN 1G/250ML KIT 500 ML IV ONE (11:23)
[2024-09-04] MEDS ORDERED: FENTanyl CITRate PF 50 MCG/1 ML 2ML VIAL ONE ×3 (11:38→12:33)
[2024-09-04] MEDS ORDERED: MIDAZOLAM HCL 1 MG/ML 2ML VIAL ONE ×3 (11:39→12:33)
[2024-09-04] MEDS ORDERED: DEXTROSE 50%-WATER 50 ML DISP.SYRIN IV PRN (12:30)
[2024-09-04] MEDS ORDERED: acetaMINOPHEN 325 MG TAB PO PRN ×2 (12:30)
--- NOTE | 2024-09-04 13:00 | NUR ---
RIGHT CHEST ASYMPTOMATIC PRESSURE DRESSING DRY INTACT SKIN INTACT
--- NOTE | 2024-09-04 16:00 | NUR ---
INSTRUCTIONS GIVEN TO BOTH PT AND FAMILY AT BEDSIDE. IV REMOVED SITE ASYMPTOMATIC. PRESSURE DRESSING TO RIGHT CHEST REMOVED SITE ASYMPTOMATIC. PT WHEELED OUTSIDE DAUGHTER DRIVING
[2024-09-04] MEDS ORDERED: INSULIN humuLIN R 100 UNIT/ML 3ML SQ SCH (16:30)
== END 2024-09-04 16:20 | disposition home or self-care (01) ==
LOC: DAH 07:20
PROVIDERS: ATTEND Internal Medicine Cardiovascular Disease
DX: Z45.02 Encounter for adjustment and management of automatic implantable cardiac defibrillator (principal); I44.7 Left bundle-branch block, unspecified; I25.5 Ischemic cardiomyopathy; I11.0 Hypertensive heart disease with heart failure; I50.42 Chronic combined systolic (congestive) and diastolic (congestive) heart failure; I44.0 Atrioventricular block, first degree; R00.1 Bradycardia, unspecified; I87.2 Venous insufficiency (chronic) (peripheral); I25.10 Atherosclerotic heart disease of native coronary artery without angina pectoris; G47.33 Obstructive sleep apnea (adult) (pediatric); E11.40 Type 2 diabetes mellitus with diabetic neuropathy, unspecified; E03.9 Hypothyroidism, unspecified; E78.5 Hyperlipidemia, unspecified; E66.01 Morbid (severe) obesity due to excess calories; N28.9 Disorder of kidney and ureter, unspecified; Z79.4 Long term (current) use of insulin; Z79.82 Long term (current) use of aspirin; Z95.5 Presence of coronary angioplasty implant and graft; Z98.890 Other specified postprocedural states; Z99.89 Dependence on other enabling machines and devices; Z79.899 Other long term (current) drug therapy; Z68.43 Body mass index [BMI] 50.0-59.9, adult
CPT/HCPCS: 80048; 85025; 85610; 85730; 36415; 93005; 33264; 82948; 99156; 99157 ×3; C1882; J3010 ×2; J7030; J0665; J3490 ×2; J2250 ×2; J3370; A4215; A4222; A4221; A4663; A4216; A4606; A4223 ×3; J0690